=== PATIENT | female | born 1950 | race Caucasian/White ===

== ENCOUNTER 2016-07-10 14:08 | Emergency (ER) | payer MEDICARE, OTHER ==
[~2016-07-10] VITALS: Ht 165.1 cm; Wt 63.5 kg
[2016-07-10] MEDS ORDERED: PANTOPRAZOLE SODIUM 40 MG/10 ML VIAL IV STA (14:37)
[2016-07-10] MEDS ORDERED: SODIUM CHLORIDE 0.9% 500 ML IVB ONE (14:37)
[2016-07-10] MEDS ORDERED: ONDANSETRON HCL 4 MG/2 ML VIAL IV ONE (14:45)
[2016-07-10] MEDS ORDERED: MORPHINE SULFATE 4 MG/ML SYRG IV ONE (14:45)
[2016-07-10 15:07] LABS: Basophils # (auto) 0.1 uL; Basophils % (auto) 0.4 % (0.0-2.0); Eosinophils # (auto) 0 uL; Eosinophils % (auto) 0.3 % (0.0-7.0); Hematocrit 35.6 % (36.0-46.0); Hemoglobin 11.8 g/dL (12.2-16.2); Lymphocytes # (auto) 1.1 uL; Lymphocytes % (auto) 6.4 % (10.0-50.0); Mean Corpuscular Hemoglobin 30.5 pg (28.0-32.0); Mean Corpuscular Hgb Conc. 33.2 g/dL (32.0-36.0); Mean Platelet Volume 9.9 fL (7.4-10.4); Monocytes % (auto) 5.7 % (0.0-12.0); Neutrophils # (auto) 14.5 uL; Neutrophils % (auto) 87.2 % (37.0-80.0); Platelet Count (auto) 327 10^3/uL (140-450); Red Cell Distribution Width 14.6 % (11.6-16.0); SUSPECT VIEW TRANSMISSION; White Blood Cell 16.7 10^3/uL (4.4-10.8)
[2016-07-10 15:45] LABS: Albumin 3.2 g/dL (3.4-5.0); Alkaline Phosphatase 65 U/L (45-117); Anion Gap 10 (5-15); Aspartate Aminotransferase 17 U/L (15-37); BUN/Creatinine Ratio 11.4; Bilirubin, Total 0.6 mg/dL (0.2-1.0); Blood Urea Nitrogen 9 mg/dL (7-18); Calcium 8.4 mg/dL (8.5-10.1); Carbon Dioxide 26 mmol/L (21-32); Chloride 98 mmol/L (98-107); GFR African American 94 mL/min; GFR Non-African American 77 mL/min; Glucose 195 mg/dL (74-106); Magnesium 1.9 mg/dL (1.6-2.6); Potassium 3.7 mmol/L (3.5-5.1); Sodium 134 mmol/L (136-145); Total Protein 6.3 g/dL (6.4-8.2)
[2016-07-10 15:55] LABS: INR 2.9 (0.9-1.15)
[2016-07-10] MEDS ORDERED: GASTROGRAFIN 30 ML SOL ONE (16:35)
[2016-07-10] MEDS ORDERED: IOHEXOL 300 MG/ML 100ML BOTTLE IJ ONE ×2 (16:35→17:37)
[2016-07-10] MEDS ORDERED: SODIUM CHLORIDE 0.9% 500 ML IV ONE (17:30)
[2016-07-10] MEDS ORDERED: NOREPINEPHRINE BITARTRATE 250 ML IV SCH ×2 (17:30→18:30)
[2016-07-10] MEDS ORDERED: SODIUM CHLORIDE 0.9% 1,000 ML IV SCH (18:29)
[2016-07-10] MEDS ORDERED: PHYTONADIONE (VIT K)10 MG/ML 1ML VIAL SUBCUT ONE (18:30)
[2016-07-10] MEDS ORDERED: FAMOTIDINE (10MG/ML) 2ML VL IV ONE (18:30)
[2016-07-10] MEDS ORDERED: SODIUM CHLORIDE 0.9% 3,000 ML IV ONE (18:30)
[2016-07-10] MEDS ORDERED: ONDANSETRON HCL 4 MG/2 ML VIAL IV PRN (18:30)
[2016-07-10] MEDS ORDERED: MORPHINE SULF INJ 2 MG/ML SYRINGE 1ML IV PRN ×2 (18:30)
[2016-07-10] MEDS ORDERED: NITROGLYCERIN 0.4 MG SL TAB SL PRN (18:30)
[2016-07-10] MEDS ORDERED: metroNIDAZOLE 500MG/100ML 100 ML IV ONE (18:45)
[2016-07-10] MEDS ORDERED: DEXTROSE (50%) 50ML SYRG IV PRN (18:45)
[2016-07-10 18:59] VITALS: BP 75/56
[2016-07-10 19:14] VITALS: BP 119/46
[2016-07-10] MEDS ORDERED: cefTRIAXone 1GM/50ML D5W 50 ML IV ONE (20:00)
[2016-07-10 20:31] VITALS: BP 90/66
[2016-07-10 20:42] VITALS: BP 74/46
[2016-07-10 21:53] VITALS: BP 92/54
[2016-07-10] MEDS ORDERED: FAMOTIDINE (10MG/ML) 2ML VL IV SCH (22:00)
[2016-07-10] MEDS ORDERED: PANTOPRAZOLE SODIUM 40 MG/10 ML VIAL IV SCH (22:00)
[2016-07-11] MEDS ORDERED: ACCU-CHEK COMFORT CURVE STRIP VI SCH
[2016-07-11] MEDS ORDERED: InsuLIN REG 1unit/0.01ml Soln (100units/ml) SC SCH
[2016-07-11] MEDS ORDERED: metroNIDAZOLE 500MG/100ML 100 ML IV SCH
[2016-07-11] MEDS ORDERED: cefTRIAXone 1GM/50ML D5W 50 ML IV SCH (09:00)
== END 2016-07-10 21:41 | disposition short-term general hospital (02) ==
LOC: ER 14:12 → UNDOADMIN 14:13 → TELE 14:13 → ER 21:41
DX: K85.90 Acute pancreatitis without necrosis or infection, unspecified (principal); R58 Hemorrhage, not elsewhere classified; K21.9 Gastro-esophageal reflux disease without esophagitis; E78.5 Hyperlipidemia, unspecified; I10 Essential (primary) hypertension; Z90.710 Acquired absence of both cervix and uterus; Z90.49 Acquired absence of other specified parts of digestive tract; I95.9 Hypotension, unspecified
CPT/HCPCS: 36415; 71010; 74176; 74177; 80053; 83036; 83690; 83735; 84484; 85025; 85610; 86850; 86900; 86901; 86920; 93005; 96361; 96365; 96367; 96368; 96372; 96375; 96376; 99291; C9113; J2270; J2405; J3430; J3490; P9016; Q9963; Q9967; 36430

== ENCOUNTER → 2016-07-28 | Outpatient (CLI) | payer MEDICARE, OTHER ==
[2016-07-28 15:52] LABS: INR 2.6 (0.7-1.3); Prothrombin Time 31.7 sec (9.0-12.0)
[2016-07-28 17:45] LABS: Basophils # (auto) 0 uL; Basophils % (auto) 0.4 % (0.0-2.0); CONDITION Y; Eosinophils # (auto) 0.3 uL; Eosinophils % (auto) 3.2 % (0.0-7.0); Hematocrit 38.7 % (36.0-46.0); Hemoglobin 12.7 g/dL (12.2-16.2); Lymphocytes # (auto) 1.1 uL; Lymphocytes % (auto) 10.4 % (10.0-50.0); Mean Corpuscular Hemoglobin 30.9 pg (28.0-32.0); Mean Corpuscular Hgb Conc. 32.8 g/dL (32.0-36.0); Mean Platelet Volume 9.5 fL (7.4-10.4); Monocytes % (auto) 9.4 % (0.0-12.0); Neutrophils % (auto) 76.6 % (37.0-80.0); Platelet Count (auto) 415 10^3/uL (140-450); Red Cell Distribution Width 18.1 % (11.6-16.0); SUSPECT SEE PRINTOUT; White Blood Cell 10.5 10^3/uL (4.4-10.8)
== END | disposition home or self-care (01) ==
LOC: LAB 12:11
PROVIDERS: ATTEND Internal Medicine Cardiovascular Disease
DX: D64.9 Anemia, unspecified (principal); R10.9 Unspecified abdominal pain
CPT/HCPCS: 36415; 85025; 85610

== ENCOUNTER → 2016-08-01 | Outpatient (CLI) | payer MEDICARE, OTHER ==
[2016-08-01 10:57] LABS: INR 2.1 (0.7-1.3); Prothrombin Time 25.5 sec (9.0-12.0)
== END | disposition home or self-care (01) ==
LOC: LAB 10:37
PROVIDERS: ATTEND Internal Medicine Cardiovascular Disease
DX: R79.1 Abnormal coagulation profile (principal)
CPT/HCPCS: 85610

== ENCOUNTER → 2016-08-08 | Outpatient (CLI) | payer MEDICARE, OTHER ==
[2016-08-08 12:05] LABS: Basophils # (auto) 0 uL; Basophils % (auto) 0.6 % (0.0-2.0); CONDITION Y; Eosinophils # (auto) 0.2 uL; Eosinophils % (auto) 2.4 % (0.0-7.0); Hematocrit 42.3 % (36.0-46.0); Hemoglobin 14.6 g/dL (12.2-16.2); Lymphocytes % (auto) 13.4 % (10.0-50.0); Mean Corpuscular Hemoglobin 31.9 pg (28.0-32.0); Mean Corpuscular Hgb Conc. 34.5 g/dL (32.0-36.0); Mean Corpuscular Volume 92.3 fL (80.0-100.0); Mean Platelet Volume 9.5 fL (7.4-10.4); Monocytes # (auto) 0.7 uL; Monocytes % (auto) 8.9 % (0.0-12.0); Neutrophils # (auto) 5.6 uL; Neutrophils % (auto) 74.7 % (37.0-80.0); Platelet Count (auto) 225 10^3/uL (140-450); White Blood Cell 7.5 10^3/uL (4.4-10.8)
[2016-08-08 12:20] LABS: Calcium 8.9 mg/dL (8.5-10.1); Potassium 3.7 mmol/L (3.5-5.1)
[2016-08-08 12:29] LABS: INR 2.09 (0.9-1.15); Partial Thromboplastin Time 37.7 sec (22.64-33.71)
== END | disposition home or self-care (01) ==
LOC: LAB 10:33
PROVIDERS: ATTEND Internal Medicine Cardiovascular Disease
DX: I10 Essential (primary) hypertension (principal); D64.9 Anemia, unspecified; R79.1 Abnormal coagulation profile; Z01.812 Encounter for preprocedural laboratory examination
CPT/HCPCS: 36415; 80048; 82150; 83690; 85025; 85610; 85730

== ENCOUNTER → 2016-12-08 | Outpatient (CLI) | payer MEDICARE, OTHER ==
[2016-12-08 13:04] LABS: Basophils # (auto) 0 uL; Basophils % (auto) 0.5 % (0.0-2.0); Eosinophils # (auto) 0.2 uL; Eosinophils % (auto) 1.9 % (0.0-7.0); Hematocrit 44.4 % (36.0-46.0); Lymphocytes # (auto) 1.4 uL; Lymphocytes % (auto) 18.5 % (10.0-50.0); Mean Corpuscular Hemoglobin 30.8 pg (28.0-32.0); Mean Corpuscular Hgb Conc. 33.8 g/dL (32.0-36.0); Mean Corpuscular Volume 91.2 fL (80.0-100.0); Mean Platelet Volume 8.6 fL (6.9-10.8); Monocytes % (auto) 13.3 % (0.0-12.0); Neutrophils # (auto) 5.1 uL; Neutrophils % (auto) 65.8 % (37.0-80.0); Nucleated Red Blood Cells % 0.2 %; Platelet Count (auto) 259 10^3/uL (140-450); White Blood Cell 7.8 10^3/uL (4.4-10.8)
[2016-12-08 13:14] LABS: Urine Bilirubin Negative (Negative); Urine Blood 1+ /uL (Negative); Urine Color Yellow (Yellow); Urine Glucose Normal (Normal); Urine Ketone Negative (Negative); Urine Nitrite Negative (Negative); Urine Urobilinogen Normal (Negative); Urine pH 6.5 (5.0-8.0)
[2016-12-08 13:42] LABS: Albumin 3.9 g/dL (3.4-5.0); BUN/Creatinine Ratio 9.7; Bilirubin, Direct 0.1 mg/dL (0-0.2); Bilirubin, Total 0.5 mg/dL (0.2-1.0); Calcium 9.6 mg/dL (8.5-10.1); Potassium 4.3 mmol/L (3.5-5.1); Total Protein 8.6 g/dL (6.4-8.2)
== END | disposition home or self-care (01) ==
LOC: LAB 10:22
PROVIDERS: ATTEND Internal Medicine Cardiovascular Disease
DX: I10 Essential (primary) hypertension (principal); E11.9 Type 2 diabetes mellitus without complications; E78.00 Pure hypercholesterolemia, unspecified; E55.9 Vitamin D deficiency, unspecified; K74.1 Hepatic sclerosis; E03.9 Hypothyroidism, unspecified; D64.9 Anemia, unspecified; N39.0 Urinary tract infection, site not specified
CPT/HCPCS: 36415; 80048; 80061; 80076; 81003; 82306; 83036; 84443; 85025; 86803

== ENCOUNTER → 2017-03-17 | Outpatient (CLI) | payer MEDICARE, OTHER | END | disposition home or self-care (01) | LOC: Rad HDHVI 14:19 | PROVIDERS: ATTEND Internal Medicine Cardiovascular Disease | DX: I70.0 Atherosclerosis of aorta (principal); I08.1 Rheumatic disorders of both mitral and tricuspid valves; I10 Essential (primary) hypertension | CPT/HCPCS: 93306 ==

== ENCOUNTER → 2017-09-14 | Outpatient (CLI) | payer MEDICARE, OTHER ==
[2017-09-14 12:03] LABS: Basophils # (auto) 0 uL; Basophils % (auto) 0.7 % (0.0-2.0); Eosinophils # (auto) 0.1 uL; Eosinophils % (auto) 1.6 % (0.0-7.0); Hematocrit 44.3 % (36.0-46.0); Hemoglobin 14.6 g/dL (12.2-16.2); Lymphocytes # (auto) 0.9 uL; Lymphocytes % (auto) 16.9 % (10.0-50.0); Mean Corpuscular Hemoglobin 31.7 pg (28.0-32.0); Mean Corpuscular Hgb Conc. 32.9 g/dL (32.0-36.0); Mean Corpuscular Volume 96.4 fL (80.0-100.0); Monocytes # (auto) 0.7 uL; Monocytes % (auto) 12.9 % (0.0-12.0); Neutrophils # (auto) 3.8 uL; Neutrophils % (auto) 67.9 % (37.0-80.0); Nucleated Red Blood Cells % 0.5 %; Platelet Count (auto) 192 10^3/uL (140-450); Red Cell Distribution Width 13.6 % (11.8-14.3); White Blood Cell 5.6 10^3/uL (4.4-10.8)
[2017-09-14 12:25] LABS: Free T4 (Free Thyroxine) 0.93 ng/dL (0.89-1.76)
[2017-09-14 12:58] LABS: Albumin 3.9 g/dL (3.4-5.0); BUN/Creatinine Ratio 10.6; Bilirubin, Total 0.5 mg/dL (0.2-1.0); Calcium 9.1 mg/dL (8.5-10.1); Potassium 4.4 mmol/L (3.5-5.1); Total Protein 7.5 g/dL (6.4-8.2)
== END | disposition home or self-care (01) ==
LOC: LAB 08:25
PROVIDERS: ATTEND Internal Medicine
DX: Z00.01 Encounter for general adult medical examination with abnormal findings (principal); I10 Essential (primary) hypertension; E11.9 Type 2 diabetes mellitus without complications; E03.9 Hypothyroidism, unspecified; E55.9 Vitamin D deficiency, unspecified; D51.9 Vitamin B12 deficiency anemia, unspecified; E78.00 Pure hypercholesterolemia, unspecified; E78.5 Hyperlipidemia, unspecified
CPT/HCPCS: 36415; 80053; 80061; 82306; 82607; 83036; 84439; 84443; 85025

== ENCOUNTER → 2018-03-15 | Outpatient (CLI) | payer MEDICARE, OTHER | END | disposition home or self-care (01) | LOC: Rad HDHVI 13:52 | PROVIDERS: ATTEND Internal Medicine | DX: I08.1 Rheumatic disorders of both mitral and tricuspid valves (principal); I49.9 Cardiac arrhythmia, unspecified; I10 Essential (primary) hypertension | CPT/HCPCS: 93306 ==

== ENCOUNTER → 2018-06-29 | Outpatient (CLI) | payer MEDICARE, OTHER ==
[2018-06-29 11:31] LABS: Urine Blood Negative /uL (Negative); Urine Specific Gravity 1.009 (1.001-1.035)
[2018-06-29 11:32] LABS: Basophils # (auto) 0.1 uL; Basophils % (auto) 1.1 % (0.0-2.0); Eosinophils # (auto) 0.1 uL; Eosinophils % (auto) 2.2 % (0.0-7.0); Hematocrit 42.9 % (36.0-46.0); Hemoglobin 14.5 g/dL (12.2-16.2); Lymphocytes # (auto) 1.2 uL; Lymphocytes % (auto) 24.5 % (10.0-50.0); Mean Corpuscular Hemoglobin 32.8 pg (28.0-32.0); Mean Corpuscular Hgb Conc. 33.8 g/dL (32.0-36.0); Monocytes # (auto) 0.7 uL; Neutrophils # (auto) 2.7 uL; Neutrophils % (auto) 57.2 % (37.0-80.0); Nucleated Red Blood Cells % 0.5 %; Platelet Count (auto) 166 10^3/uL (140-450); Red Blood Cells 4.42 10^6/uL (4.0-5.20); Red Cell Distribution Width 13.6 % (11.8-14.3); White Blood Cell 4.8 10^3/uL (4.4-10.8)
[2018-06-29 11:53] LABS: Free T4 (Free Thyroxine) 1.04 ng/dL (0.89-1.76)
[2018-06-29 11:57] LABS: Potassium 3.7 mmol/L (3.5-5.1)
[2018-06-29 12:08] LABS: Albumin 3.8 g/dL (3.4-5.0); BUN/Creatinine Ratio 4.8; Bilirubin, Total 0.4 mg/dL (0.2-1.0); Total Protein 7.6 g/dL (6.4-8.2)
== END | disposition home or self-care (01) ==
LOC: LAB 10:06
PROVIDERS: ATTEND Internal Medicine
DX: E03.9 Hypothyroidism, unspecified (principal); E55.9 Vitamin D deficiency, unspecified; D51.9 Vitamin B12 deficiency anemia, unspecified; N39.0 Urinary tract infection, site not specified; Z79.899 Other long term (current) drug therapy
CPT/HCPCS: 36415; 80053; 80061; 81003; 82306; 82607; 83036; 84439; 84443; 85025

== ENCOUNTER → 2018-07-20 | Outpatient (CLI) | payer MEDICARE, OTHER ==
[~2018-07-20] VITALS: Ht 165.1 cm; Wt 63.0 kg
[~2018-07-20] MED LIST: ADENOSINE 53 MG in GIVE UN-DILUTED 0 ML IV ONE; ADENOSINE 90 MG/30 ML INJ IV ONE
== END | disposition home or self-care (01) ==
LOC: Rad HDHVI 08:20
PROVIDERS: ATTEND Internal Medicine
DX: R00.2 Palpitations (principal); I10 Essential (primary) hypertension; K21.9 Gastro-esophageal reflux disease without esophagitis
CPT/HCPCS: 78452; 93005; 96374; 96375; A9500; J0153

== ENCOUNTER 2018-11-10 16:09 | Emergency (ER) | payer MEDICARE, OTHER ==
[~2018-11-10] VITALS: Ht 157.5 cm; Wt 68.0 kg
[2018-11-10 16:33] VITALS: BP 154/78
[2018-11-10 17:41] LABS: Basophils # (auto) 0.1 uL; Basophils % (auto) 0.4 % (0.0-2.0); Eosinophils # (auto) 0.1 uL; Hematocrit 44.2 % (36.0-46.0); Hemoglobin 14.5 g/dL (12.2-16.2); Lymphocytes # (auto) 1.4 uL; Lymphocytes % (auto) 11.3 % (10.0-50.0); Mean Corpuscular Hemoglobin 31.7 pg (28.0-32.0); Mean Corpuscular Hgb Conc. 32.9 g/dL (32.0-36.0); Mean Corpuscular Volume 96.4 fL (80.0-100.0); Monocytes # (auto) 1.4 uL; Monocytes % (auto) 11.9 % (0.0-12.0); Neutrophils # (auto) 9.1 uL; Neutrophils % (auto) 75.4 % (37.0-80.0); Nucleated Red Blood Cells % 0.1 %; Platelet Count (auto) 216 10^3/uL (140-450); Red Blood Cells 4.58 10^6/uL (4.0-5.20); Red Cell Distribution Width 13.7 % (11.8-14.3); White Blood Cell 12.1 10^3/uL (4.4-10.8)
[2018-11-10 17:53] LABS: Alanine Aminotransferase 32 U/L (13-56); Albumin 3.8 g/dL (3.4-5.0); Anion Gap 9 (5-15); Blood Urea Nitrogen 15 mg/dL (7-18); Carbon Dioxide 26 mmol/L (21-32); Chloride 98 mmol/L (98-107); Glucose 146 mg/dL (74-106); Potassium 3.8 mmol/L (3.5-5.1); Sodium 133 mmol/L (136-145)
[2018-11-10 17:58] LABS: Alkaline Phosphatase 73 U/L (45-117); Aspartate Aminotransferase 27 U/L (15-37); BUN/Creatinine Ratio 21.7; Bilirubin, Total 0.7 mg/dL (0.2-1.0); GFR African American 108 mL/min; GFR Non-African American 90 mL/min
== END 2018-11-10 20:22 | disposition left against medical advice (07) ==
LOC: EDBD 16:09 → ER 16:09
DX: R04.0 Epistaxis (principal); R90.82 White matter disease, unspecified; Z53.21 Procedure and treatment not carried out due to patient leaving prior to being seen by health care provider
CPT/HCPCS: 36415; 70450; 80053; 84484; 85025

== ENCOUNTER → 2018-11-13 | Outpatient (CLI) | payer MEDICARE, OTHER ==
[2018-11-13 15:59] LABS: Basophils # (auto) 0 uL; Basophils % (auto) 0.5 % (0.0-2.0); Eosinophils # (auto) 0.1 uL; Eosinophils % (auto) 1.8 % (0.0-7.0); Hematocrit 37.2 % (36.0-46.0); Hemoglobin 12.6 g/dL (12.2-16.2); Lymphocytes % (auto) 14.1 % (10.0-50.0); Mean Corpuscular Hemoglobin 32.8 pg (28.0-32.0); Mean Corpuscular Hgb Conc. 33.9 g/dL (32.0-36.0); Mean Corpuscular Volume 96.7 fL (80.0-100.0); Monocytes % (auto) 14.5 % (0.0-12.0); Neutrophils # (auto) 4.9 uL; Neutrophils % (auto) 69.1 % (37.0-80.0); Platelet Count (auto) 176 10^3/uL (140-450); Red Blood Cells 3.84 10^6/uL (4.0-5.20); Red Cell Distribution Width 13.2 % (11.8-14.3); White Blood Cell 7.2 10^3/uL (4.4-10.8)
[2018-11-13 16:08] LABS: Potassium 3.4 mmol/L (3.5-5.1)
[2018-11-13 16:16] LABS: Albumin 3.7 g/dL (3.4-5.0); BUN/Creatinine Ratio 12.1; Bilirubin, Total 0.5 mg/dL (0.2-1.0); Total Protein 7.2 g/dL (6.4-8.2)
== END | disposition home or self-care (01) ==
LOC: LAB 14:40
PROVIDERS: ATTEND Internal Medicine
DX: D64.9 Anemia, unspecified (principal); I10 Essential (primary) hypertension; R79.9 Abnormal finding of blood chemistry, unspecified; Z98.890 Other specified postprocedural states
CPT/HCPCS: 36415; 80053; 85025; 85610

== ENCOUNTER → 2019-10-29 | Outpatient (CLI) | payer MEDICARE, OTHER ==
[2019-10-29 15:58] LABS: Albumin 3.6 g/dL (3.4-5.0); Calcium 8.8 mg/dL (8.5-10.1); Potassium 3.6 mmol/L (3.5-5.1)
[2019-10-29 16:05] LABS: BUN/Creatinine Ratio 8.7; Bilirubin, Total 0.7 mg/dL (0.2-1.0); Free T4 (Free Thyroxine) 1.02 ng/dL (0.89-1.76); Pre Albumin 30.8 mg/dL (20.0-40.0); Total Protein 7.2 g/dL (6.4-8.2)
[2019-10-29 16:35] LABS: Basophils # (auto) 0.1 10 ^3/uL (0-0.2); Basophils % (auto) 0.7 % (0.0-2.0); Eosinophils # (auto) 0 10 ^3/uL (0-0.8); Eosinophils % (auto) 0.5 % (0.0-7.0); Hematocrit 40.8 % (36.0-46.0); Hemoglobin 14.1 g/dL (12.2-16.2); Lymphocytes # (auto) 1.1 10 ^3/uL (0.4-5.4); Lymphocytes % (auto) 11.4 % (10.0-50.0); Mean Corpuscular Hgb Conc. 34.6 g/dL (32.0-36.0); Mean Corpuscular Volume 95.6 fL (80.0-100.0); Monocytes # (auto) 1.1 10 ^3/uL (0-1.3); Monocytes % (auto) 12.2 % (0.0-12.0); Neutrophils % (auto) 75.2 % (37.0-80.0); Nucleated Red Blood Cells % 0.1 %; Platelet Count (auto) 211 10^3/uL (140-450); Red Blood Cells 4.26 10^6/uL (4.0-5.20); Red Cell Distribution Width 12.7 % (11.8-14.3); White Blood Cell 9.3 10^3/uL (4.4-10.8)
== END | disposition home or self-care (01) ==
LOC: LAB 11:57
PROVIDERS: ATTEND Internal Medicine
DX: D51.3 Other dietary vitamin B12 deficiency anemia (principal); D64.9 Anemia, unspecified; E11.9 Type 2 diabetes mellitus without complications; E55.9 Vitamin D deficiency, unspecified; I10 Essential (primary) hypertension; R00.2 Palpitations; R53.1 Weakness; R30.0 Dysuria; R77.0 Abnormality of albumin
CPT/HCPCS: 36415; 80053; 80061; 82040; 82607; 83036; 84439; 84443; 85025

== ENCOUNTER → 2019-10-31 | Outpatient (CLI) | payer MEDICARE, OTHER | END | disposition home or self-care (01) | LOC: Rad HDHVI 08:08 | PROVIDERS: ATTEND Internal Medicine | DX: I08.1 Rheumatic disorders of both mitral and tricuspid valves (principal); I42.9 Cardiomyopathy, unspecified; I48.91 Unspecified atrial fibrillation; I49.3 Ventricular premature depolarization | CPT/HCPCS: 93306 ==

== ENCOUNTER → 2019-11-01 | Outpatient (CLI) | payer MEDICARE, OTHER ==
[~2019-11-01] MED LIST changes: -ADENOSINE 53 MG in GIVE UN-DILUTED 0 ML IV ONE; -ADENOSINE 90 MG/30 ML INJ IV ONE; +ALBU0.084 NEB; +ALBUAER3 IN; +BIOT50006 PO; +ESOM40CA39 PO; +METO-158 PO; +METO-159 PO; +MULT-927 PO; +OYST500T29 PO; +SACU1TAB PO; +SIMV-13 PO; +WARF2TAB49 PO; +WARF3TAB22 PO; +WARF4TAB33 PO; +WARF5TAB71 PO
[2019-11-01 16:39] LABS: Urine Blood Negative /uL (Negative); Urine Specific Gravity 1.015 (1.001-1.035)
== END | disposition home or self-care (01) ==
LOC: LAB 13:50
PROVIDERS: ATTEND Internal Medicine
DX: N39.0 Urinary tract infection, site not specified (principal); R19.5 Other fecal abnormalities
CPT/HCPCS: 81003; 82270

== ENCOUNTER → 2019-12-04 | Outpatient (CLI) | payer MEDICARE, OTHER ==
[~2019-12-04] MED LIST changes: -ALBU0.084 NEB; -ALBUAER3 IN; -WARF2TAB49 PO
[2019-12-04 10:09] VITALS: BP 110/55
--- NOTE | 2019-12-04 10:09 | NUR ---
CLINIC PT ARRIVED TO THE [facility] FOR EKG, LABS, CXR FOR PRE OP FOR [facility], A/OX4, AMBULATORY, BREATHING IS EVEN AND UNLABORED
--- NOTE | 2019-12-04 10:14 | NUR ---
EKG DONE BY MARIO MCINTYRE REVIEWED BY OSEAS MASSEY SR 61 TRIGEMINY PVC
[2019-12-04 10:27] VITALS: BP 122/55
--- NOTE | 2019-12-04 10:27 | NUR ---
Pre-Op Discharge Summary: See e-MAR for any medications given for this visit. Pre-op orders received and carried out per MD of EKG, LABS and chest xrays. Patient given a copy of EKG with instructions to go to [facility] out patient for further follow up care. NOTE EKG DONE BY MARIO MCINTYRE REVIEWED BY OSEAS MASSEY
[2019-12-04 12:23] LABS: Basophils # (auto) 0.1 10 ^3/uL (0-0.2); Basophils % (auto) 0.6 % (0.0-2.0); Eosinophils # (auto) 0.1 10 ^3/uL (0-0.8); Eosinophils % (auto) 0.8 % (0.0-7.0); Hematocrit 40.4 % (36.0-46.0); Hemoglobin 13.9 g/dL (12.2-16.2); Lymphocytes # (auto) 1.2 10 ^3/uL (0.4-5.4); Mean Corpuscular Hemoglobin 32.9 pg (28.0-32.0); Mean Corpuscular Hgb Conc. 34.3 g/dL (32.0-36.0); Mean Corpuscular Volume 95.9 fL (80.0-100.0); Monocytes # (auto) 1.3 10 ^3/uL (0-1.3); Monocytes % (auto) 11.3 % (0.0-12.0); Neutrophils # (auto) 8.5 10 ^3/uL (1.6-8.6); Neutrophils % (auto) 76.3 % (37.0-80.0); Nucleated Red Blood Cells % 0.1 %; Platelet Count (auto) 229 10^3/uL (140-450); Red Blood Cells 4.21 10^6/uL (4.0-5.20); White Blood Cell 11.2 10^3/uL (4.4-10.8)
[2019-12-04 12:27] LABS: Potassium 3.6 mmol/L (3.5-5.1)
[2019-12-04 12:29] LABS: INR 2.78 (0.9-1.15); Partial Thromboplastin Time 39.5 sec (23.0-31.2)
[2019-12-04 12:30] LABS: BUN/Creatinine Ratio 9.8; Calcium 8.6 mg/dL (8.5-10.1)
== END | disposition home or self-care (01) ==
LOC: Rad HDHVI 09:48
PROVIDERS: ATTEND Internal Medicine
DX: Z01.812 Encounter for preprocedural laboratory examination (principal); Z01.818 Encounter for other preprocedural examination; I70.0 Atherosclerosis of aorta; I11.0 Hypertensive heart disease with heart failure; I48.91 Unspecified atrial fibrillation; R06.02 Shortness of breath; I42.9 Cardiomyopathy, unspecified
CPT/HCPCS: 36415; 71046; 80048; 85025; 85610; 85730; 93005; G0463

== ENCOUNTER 2019-12-11 06:57 | Day surgery (SDC) | payer MEDICARE, OTHER ==
[~2019-12-11] VITALS: Ht 162.6 cm; Wt 55.3 kg
[2019-12-11 08:50] LABS: INR 1.59 (0.9-1.15)
[2019-12-11] MEDS ORDERED: GELATIN 1 SPONGE SIZE 50 TOP ONE (09:24)
[2019-12-11] MEDS ORDERED: LIDOCAINE 2%HCL (LOCAL ANESTH.) INJ 20ML MDV ONE (09:24)
[2019-12-11] MEDS ORDERED: SODIUM CHL 0.9% 0 ML ONE (09:54)
[2019-12-11] MEDS ORDERED: fentaNYL CITRATE 100 MCG/2 ML VL ONE (09:54)
[2019-12-11] MEDS ORDERED: ANGIOMAX 250 MG VIAL IV ONE (09:54)
[2019-12-11] MEDS ORDERED: MIDAZOLAM HCL 1MG/1ML-2 ML VIAL ONE (09:54)
[2019-12-11] MEDS ORDERED: ACETAMINOPHEN 500 MG TAB PO PRN (11:15)
[2019-12-11] MEDS ORDERED: HYDROcodone-ACET 5/325MG TAB PO PRN (11:15)
[2019-12-11] MEDS ORDERED: ONDANSETRON HCL 4 MG/2 ML VIAL IV PRN (11:15)
== END 2019-12-11 15:04 | disposition home or self-care (01) ==
LOC: CATH 06:57
PROVIDERS: ATTEND Internal Medicine
DX: R06.02 Shortness of breath (principal); I10 Essential (primary) hypertension; E78.5 Hyperlipidemia, unspecified; Z87.891 Personal history of nicotine dependence; Z79.899 Other long term (current) drug therapy; Z20.828 Contact with and (suspected) exposure to other viral communicable diseases; Z98.890 Other specified postprocedural states
CPT/HCPCS: 36415; 85610; 93456; C1751; C1760; C1894; J1644; J2250; J3010; J7030; U0003; 99152

== ENCOUNTER 2019-12-16 08:23 | Inpatient (IN) | payer MEDICARE, OTHER ==
[~2019-12-16] VITALS: Ht 162.6 cm; Wt 57.3 kg
[2019-12-16 09:15] LABS: Basophils # (auto) 0 10 ^3/uL (0-0.2); Basophils % (auto) 0.4 % (0.0-2.0); Eosinophils # (auto) 0.1 10 ^3/uL (0-0.8); Eosinophils % (auto) 1.2 % (0.0-7.0); Hematocrit 32.8 % (36.0-46.0); Hemoglobin 10.9 g/dL (12.2-16.2); Lymphocytes % (auto) 15.8 % (10.0-50.0); Mean Corpuscular Hemoglobin 32.3 pg (28.0-32.0); Mean Corpuscular Hgb Conc. 33.3 g/dL (32.0-36.0); Monocytes # (auto) 0.8 10 ^3/uL (0-1.3); Monocytes % (auto) 12.3 % (0.0-12.0); Neutrophils # (auto) 4.5 10 ^3/uL (1.6-8.6); Neutrophils % (auto) 70.3 % (37.0-80.0); Nucleated Red Blood Cells % 0.4 %; Platelet Count (auto) 230 10^3/uL (140-450); Red Blood Cells 3.38 10^6/uL (4.0-5.20); Red Cell Distribution Width 13.1 % (11.8-14.3); White Blood Cell 6.4 10^3/uL (4.4-10.8)
[2019-12-16 09:31] LABS: INR 1.01 (0.9-1.15); Partial Thromboplastin Time 25.6 sec (23.0-31.2)
[2019-12-16 09:32] LABS: Albumin 3.4 g/dL (3.4-5.0); BUN/Creatinine Ratio 6.5; Calcium 8.3 mg/dL (8.5-10.1); Potassium 3.5 mmol/L (3.5-5.1)
[2019-12-16 09:35] LABS: Bilirubin, Total 0.8 mg/dL (0.2-1.0)
[2019-12-16] MEDS ORDERED: MORPHINE SULF INJ 2 MG/ML SYRINGE 1ML IV PRN ×2 (10:30)
[2019-12-16] MEDS ORDERED: NITROGLYCERIN 0.4 MG SL TAB SL PRN (10:30)
[2019-12-16] MEDS ORDERED: HYDROcodone-ACET 5/325MG TAB PO PRN (10:30)
[2019-12-16] MEDS ORDERED: DOCUSATE SOD 100 MG CAP PO PRN (10:30)
[2019-12-16] MEDS ORDERED: ONDANSETRON HCL 4 MG/2 ML VIAL IV PRN (10:30)
[2019-12-16] MEDS: SODIUM CHLORIDE 0.9% 1,000 ML IV SCH (10:51)
[2019-12-16] MEDS ORDERED: WARF2TAB49 PO (11:54)
[2019-12-16] MEDS ORDERED: ALBU0.084 NEB (11:56)
[2019-12-16] MEDS ORDERED: ALBUAER3 IN (11:56)
[2019-12-16] MEDS: ACETAMINOPHEN 500 MG TAB PO PRN (12:15)
--- NOTE | 2019-12-16 15:02 | NUR ---
Report Received report from ER. Denise
--- NOTE | 2019-12-16 15:30 | NUR ---
Patient Arrived Patient arrived to unit. Patient arrived to unit from ER. No signs of distress at this time. Respirations even and unlabored. Will continue to monitor q1hr and PRN.
[2019-12-16 16:56] VITALS: BP 103/56
[2019-12-16] MEDS ORDERED: MULTIPLE VITAMINS W/ MINERALS TAB PO SCH (18:00)
--- NOTE | 2019-12-16 18:15 | NUR ---
Picture Obtained pictures of right lower extremity ecchymosis.
--- NOTE | 2019-12-16 19:25 | NUR ---
Closing Shift Note Endorsed patient care to [facility] RNThomas. Patient currently laying in bed, no signs of distress at this time. Respirations even and unlabored.
--- NOTE | 2019-12-16 19:25 | NUR ---
MRSA MRSA swab obtained and sent to lab.
[2019-12-16] MEDS: SACUBITRIL-VALSARTAN 24mg/26mg TAB PO SCH (21:56)
[2019-12-16 22:00] VITALS: BP 129/82
[2019-12-16] MEDS ORDERED: ATORVASTATIN 20 MG PO SCH (22:00)
[2019-12-16] MEDS ORDERED: METOPROLOL TARTRATE 50 MG TAB PO SCH (22:00)
[2019-12-16] MEDS ORDERED: TEMAZEPAM 15 MG CAP PO ONE (22:45)
[2019-12-16 23:19] LABS: Urine Amorphous Crystal FEW /hpf (None Seen); Urine Bacteria FEW /hpf (None Seen); Urine Blood Negative /uL (Negative); Urine Mucus FEW (None Seen); Urine Specific Gravity 1.013 (1.001-1.035); Urine WBC 215 /hpf (0 - 5)
[2019-12-17] MEDS: SODIUM CHLORIDE 0.9% 1,000 ML IV SCH (00:05)
[2019-12-17 05:00] VITALS: BP 120/60
[2019-12-17 07:10] LABS: Basophils # (auto) 0 10 ^3/uL (0-0.2); Basophils % (auto) 0.8 % (0.0-2.0); Eosinophils # (auto) 0.1 10 ^3/uL (0-0.8); Eosinophils % (auto) 1.7 % (0.0-7.0); Hematocrit 27.7 % (36.0-46.0); Hemoglobin 9.5 g/dL (12.2-16.2); Lymphocytes # (auto) 1.1 10 ^3/uL (0.4-5.4); Lymphocytes % (auto) 20.3 % (10.0-50.0); Mean Corpuscular Hemoglobin 33.5 pg (28.0-32.0); Mean Corpuscular Hgb Conc. 34.4 g/dL (32.0-36.0); Mean Corpuscular Volume 97.5 fL (80.0-100.0); Monocytes # (auto) 0.8 10 ^3/uL (0-1.3); Monocytes % (auto) 14.4 % (0.0-12.0); Neutrophils # (auto) 3.5 10 ^3/uL (1.6-8.6); Neutrophils % (auto) 62.8 % (37.0-80.0); Nucleated Red Blood Cells % 0.2 %; Platelet Count (auto) 188 10^3/uL (140-450); Red Blood Cells 2.84 10^6/uL (4.0-5.20); Red Cell Distribution Width 13.2 % (11.8-14.3); White Blood Cell 5.6 10^3/uL (4.4-10.8)
[2019-12-17 07:31] LABS: Potassium 3.8 mmol/L (3.5-5.1)
[2019-12-17 07:34] LABS: BUN/Creatinine Ratio 9.3; Calcium 8.5 mg/dL (8.5-10.1)
[2019-12-17 08:20] VITALS: BP 134/57
--- NOTE | 2019-12-17 08:20 | NUR ---
Patient resting quietly in bed with no complaint of any pain at this time. Patient stable.
[2019-12-17 08:24] VITALS: BP 134/57
[2019-12-17] MEDS: SACUBITRIL-VALSARTAN 24mg/26mg TAB PO SCH (09:25)
--- NOTE | 2019-12-17 09:25 | NUR ---
Scheduled medication given per order. Patient resting comfortably in bed with no distress noted. Patient stable.
[2019-12-17] MEDS ORDERED: FAMOTIDINE 20 MG TAB PO SCH (10:00)
--- NOTE | 2019-12-17 11:15 | NUR ---
Patient asleep with no distress noted. Patient stable.
--- NOTE | 2019-12-17 11:25 | NUR ---
Patient resting quietly in bed with Dr. Menchaca at bedside. Patient medicated for 3/10 headache pain. Patient stable at this time.
[2019-12-17] MEDS: ACETAMINOPHEN 500 MG TAB PO PRN (11:28)
[2019-12-17] MEDS ORDERED: cefTRIAXone 1GM/50ML D5W 50 ML IV ONE (11:30)
[2019-12-17 12:14] VITALS: BP 123/63
[2019-12-17] MEDS ORDERED: fentaNYL CITRATE 100 MCG/2 ML VL ONE (13:10)
[2019-12-17] MEDS ORDERED: MIDAZOLAM HCL 1MG/1ML-2 ML VIAL ONE (13:10)
--- NOTE | 2019-12-17 14:20 | NUR ---
Patient resting comfortably in bed with no distress noted; denies any pain. Patient stable.
[2019-12-17 15:00] VITALS: BP_SYST 123; BP_SYST 134; BP_DIAS 63; BP_DIAS 75
--- NOTE | 2019-12-17 15:42 | NUR ---
Ordered IV abx given. Patient resting comfortably in bed with no complaint of pain. Patient stable.
--- NOTE | 2019-12-17 17:25 | NUR ---
Discharge instructions / discharge Both written and verbal discharge instructions given to patient as ordered. Encourage to follow up with PMD as instructed. Also advised to follow up with Dr. Long this week. Patient states she has an appointment on , 12-19-19. All questions and concerns addressed. Patient verbalized understanding. Medication reconciliation form completed and copy given to patient. Peripheral IV removed with intact with no active bleeding; pressure dressing applied. Telemetry unit returned to ICU. Patient discharged to home in stable condition. Patient taken to vehicle via wheelchair with all personal belongings, accompanied by staff member. No distress noted at time of departure.
[2019-12-18] MEDS ORDERED: cefTRIAXone 1GM/50ML D5W 50 ML IV SCH (09:00)
== END 2019-12-17 17:25 | disposition home or self-care (01) | DRG 920 ==
LOC: ER 08:23 → TELE 08:24 → TELE-CENTR 15:37
PROVIDERS: ADMIT Nurse Practitioner Acute Care; ATTEND Internal Medicine
DX: L76.32 Postprocedural hematoma of skin and subcutaneous tissue following other procedure (principal); I50.22 Chronic systolic (congestive) heart failure; I48.0 Paroxysmal atrial fibrillation; K21.9 Gastro-esophageal reflux disease without esophagitis; J45.909 Unspecified asthma, uncomplicated; D64.9 Anemia, unspecified; I11.0 Hypertensive heart disease with heart failure; E78.5 Hyperlipidemia, unspecified; Z90.710 Acquired absence of both cervix and uterus; Z95.2 Presence of prosthetic heart valve; S80.11XA Contusion of right lower leg, initial encounter; Z90.49 Acquired absence of other specified parts of digestive tract
CPT/HCPCS: 36415; 80048; 80053; 81001; 85025; 85610; 85730; 87081; 93005; 93926; 96360; G0378; J0696; J2250

== ENCOUNTER → 2019-12-19 | Outpatient (CLI) | payer MEDICARE, OTHER ==
[~2019-12-19] MED LIST changes: +ALBU0.084 NEB; +ALBUAER3 IN; +WARF2TAB49 PO; -WARF3TAB22 PO; -WARF4TAB33 PO; -WARF5TAB71 PO
[2019-12-19 15:57] LABS: Basophils # (auto) 0 10 ^3/uL (0-0.2); Basophils % (auto) 0.4 % (0.0-2.0); Eosinophils # (auto) 0.1 10 ^3/uL (0-0.8); Hematocrit 31.8 % (36.0-46.0); Hemoglobin 10.8 g/dL (12.2-16.2); Lymphocytes # (auto) 1.4 10 ^3/uL (0.4-5.4); Lymphocytes % (auto) 12.7 % (10.0-50.0); Mean Corpuscular Hemoglobin 33.6 pg (28.0-32.0); Mean Corpuscular Hgb Conc. 33.8 g/dL (32.0-36.0); Mean Corpuscular Volume 99.4 fL (80.0-100.0); Monocytes # (auto) 1.3 10 ^3/uL (0-1.3); Monocytes % (auto) 11.6 % (0.0-12.0); Neutrophils # (auto) 8.1 10 ^3/uL (1.6-8.6); Neutrophils % (auto) 74.3 % (37.0-80.0); Nucleated Red Blood Cells % 0.1 %; Platelet Count (auto) 266 10^3/uL (140-450); Red Cell Distribution Width 13.8 % (11.8-14.3); White Blood Cell 10.9 10^3/uL (4.4-10.8)
== END | disposition home or self-care (01) ==
LOC: LAB 11:17
PROVIDERS: ATTEND Internal Medicine
DX: N39.0 Urinary tract infection, site not specified (principal); D64.9 Anemia, unspecified
CPT/HCPCS: 36415; 85025; 87086

== ENCOUNTER → 2020-08-27 | Outpatient (CLI) | payer MEDICARE, OTHER ==
[2020-08-27 15:12] LABS: Basophils # (auto) 0.1 10 ^3/uL (0-0.2); Basophils % (auto) 0.8 % (0.0-2.0); Eosinophils # (auto) 0.1 10 ^3/uL (0-0.8); Eosinophils % (auto) 1.4 % (0.0-7.0); Hematocrit 34.5 % (36.0-46.0); Hemoglobin 11.9 g/dL (12.2-16.2); Lymphocytes # (auto) 1.5 10 ^3/uL (0.4-5.4); Lymphocytes % (auto) 16.5 % (10.0-50.0); Mean Corpuscular Hgb Conc. 34.5 g/dL (32.0-36.0); Mean Corpuscular Volume 92.8 fL (80.0-100.0); Monocytes % (auto) 11.1 % (0.0-12.0); Neutrophils # (auto) 6.3 10 ^3/uL (1.6-8.6); Neutrophils % (auto) 70.2 % (37.0-80.0); Nucleated Red Blood Cells % 0.1 %; Red Blood Cells 3.72 10^6/uL (4.0-5.20); Red Cell Distribution Width 12.4 % (11.8-14.3)
[2020-08-27 15:17] LABS: Albumin 4.2 g/dL (3.4-5.0); Calcium 8.3 mg/dL (8.5-10.1)
[2020-08-27 15:22] LABS: Bilirubin, Total 0.5 mg/dL (0.2-1.0); CRP High Sensitivity 0.08 mg/dL (< 0.3)
[2020-08-27 15:23] LABS: BUN/Creatinine Ratio 13.3; Potassium 2.8 mmol/L (3.5-5.1)
== END | disposition home or self-care (01) ==
LOC: Rad HDHVI 12:38
PROVIDERS: ATTEND Internal Medicine
DX: R06.02 Shortness of breath (principal); I70.0 Atherosclerosis of aorta; R79.82 Elevated C-reactive protein (CRP); I10 Essential (primary) hypertension; D64.9 Anemia, unspecified
CPT/HCPCS: 36415; 71046; 80053; 85025; 86141

== ENCOUNTER → 2020-08-28 | Outpatient (CLI) | payer MEDICARE, OTHER | END | disposition home or self-care (01) | LOC: LAB 10:31 | PROVIDERS: ATTEND Internal Medicine Cardiovascular Disease | DX: R94.4 Abnormal results of kidney function studies (principal) | CPT/HCPCS: 36415; 82565 ==

== ENCOUNTER → 2020-08-31 | Outpatient (CLI) | payer MEDICARE, OTHER ==
[~2020-08-31] MED LIST changes: +IOHEXOL 350 MG/ML 100ML IJ ONE
[2020-08-31 10:29] VITALS: BP 128/52
[2020-08-31 10:56] VITALS: BP 131/44
== END | disposition home or self-care (01) ==
LOC: Rad HDHVI 10:21
PROVIDERS: ATTEND Internal Medicine
DX: G93.89 Other specified disorders of brain (principal); J34.89 Other specified disorders of nose and nasal sinuses; J32.9 Chronic sinusitis, unspecified; R51.9 Headache, unspecified
CPT/HCPCS: 70470; G0463; Q9967

== ENCOUNTER → 2020-09-10 | Outpatient (CLI) | payer MEDICARE, OTHER ==
[~2020-09-10] MED LIST changes: -IOHEXOL 350 MG/ML 100ML IJ ONE
[2020-09-10 11:33] LABS: Albumin 3.8 g/dL (3.4-5.0); Calcium 8.7 mg/dL (8.5-10.1); Potassium 3.3 mmol/L (3.5-5.1)
[2020-09-10 11:38] LABS: BUN/Creatinine Ratio 16.1; Bilirubin, Total 0.5 mg/dL (0.2-1.0); Total Protein 7.3 g/dL (6.4-8.2)
== END | disposition home or self-care (01) ==
LOC: LAB 10:41
PROVIDERS: ATTEND Internal Medicine
DX: I10 Essential (primary) hypertension (principal)
CPT/HCPCS: 36415; 80053

== ENCOUNTER → 2021-02-09 | Outpatient (CLI) | payer MEDICARE, OTHER | END | disposition home or self-care (01) | LOC: Rad HDHVI 10:35 | PROVIDERS: ATTEND Internal Medicine | DX: M19.032 Primary osteoarthritis, left wrist (principal); M85.88 Other specified disorders of bone density and structure, other site; M25.832 Other specified joint disorders, left wrist | CPT/HCPCS: 73110 ==

== ENCOUNTER → 2021-11-24 | Outpatient (CLI) | payer MEDICARE, OTHER ==
[2021-11-24 12:58] LABS: Potassium 3.4 mmol/L (3.5-5.1)
[2021-11-24 12:59] LABS: Basophils # (auto) 0.1 10 ^3/uL (0-0.2); Basophils % (auto) 0.8 % (0.0-2.0); Eosinophils # (auto) 0.1 10 ^3/uL (0-0.8); Eosinophils % (auto) 0.7 % (0.0-7.0); Hematocrit 36.9 % (36.0-46.0); Hemoglobin 12.6 g/dL (12.2-16.2); Lymphocytes # (auto) 1.3 10 ^3/uL (0.4-5.4); Lymphocytes % (auto) 13.9 % (10.0-50.0); Mean Corpuscular Hemoglobin 31.4 pg (28.0-32.0); Mean Corpuscular Hgb Conc. 34.1 g/dL (32.0-36.0); Mean Corpuscular Volume 92.1 fL (80.0-100.0); Monocytes # (auto) 1.2 10 ^3/uL (0-1.3); Monocytes % (auto) 13.2 % (0.0-12.0); Neutrophils # (auto) 6.7 10 ^3/uL (1.6-8.6); Neutrophils % (auto) 71.4 % (37.0-80.0); Nucleated Red Blood Cells % 0.1 %; Red Blood Cells 4.01 10^6/uL (4.0-5.20); Red Cell Distribution Width 12.9 % (11.8-14.3); White Blood Cell 9.4 10^3/uL (4.4-10.8)
[2021-11-24 13:03] LABS: Free T4 (Free Thyroxine) 1.64 ng/dL (0.89-1.76)
[2021-11-24 13:07] LABS: Albumin 3.8 g/dL (3.4-5.0); BUN/Creatinine Ratio 12.7; Bilirubin, Total 0.6 mg/dL (0.2-1.0); Calcium 9.2 mg/dL (8.5-10.1); Total Protein 7.5 g/dL (6.4-8.2)
== END | disposition home or self-care (01) ==
LOC: LAB 09:04
PROVIDERS: ATTEND Internal Medicine
DX: I10 Essential (primary) hypertension (principal); E55.9 Vitamin D deficiency, unspecified; D51.3 Other dietary vitamin B12 deficiency anemia; D64.9 Anemia, unspecified; E11.9 Type 2 diabetes mellitus without complications; R00.2 Palpitations; R53.1 Weakness; R30.0 Dysuria
CPT/HCPCS: 36415; 80053; 80061; 82306; 82607; 83036; 84439; 84443; 85025

== ENCOUNTER → 2021-11-26 | Outpatient (CLI) | payer MEDICARE, OTHER | END | disposition home or self-care (01) | LOC: Rad HDHVI 09:28 | PROVIDERS: ATTEND Internal Medicine | DX: I08.8 Other rheumatic multiple valve diseases (principal); I11.9 Hypertensive heart disease without heart failure; Z95.2 Presence of prosthetic heart valve | CPT/HCPCS: 93306 ==

== ENCOUNTER → 2021-11-30 | Outpatient (CLI) | payer MEDICARE, OTHER ==
[~2021-11-30] VITALS: Ht 160 cm; Wt 49.9 kg
[~2021-11-30] MED LIST changes: +ADENOSINE 42 MG in GIVE UN-DILUTED 0 ML IV ONE; +ADENOSINE 90 MG/30 ML INJ IV ONE
[2021-11-30 12:15] LABS: Urine Blood Negative /uL (Negative); Urine Specific Gravity 1.011 (1.001-1.035)
== END | disposition home or self-care (01) ==
LOC: Rad HDHVI 09:08
PROVIDERS: ATTEND Internal Medicine
DX: I10 Essential (primary) hypertension (principal); E78.5 Hyperlipidemia, unspecified; N39.0 Urinary tract infection, site not specified; I95.89 Other hypotension; R42 Dizziness and giddiness; Z82.49 Family history of ischemic heart disease and other diseases of the circulatory system; Z79.899 Other long term (current) drug therapy; Z95.2 Presence of prosthetic heart valve
CPT/HCPCS: 78452; 81003; 87086; 93005; 96374; 96375; A9500; J0153

== ENCOUNTER → 2022-06-06 | Outpatient (CLI) | payer MEDICARE, OTHER ==
[~2022-06-06] MED LIST changes: -ADENOSINE 42 MG in GIVE UN-DILUTED 0 ML IV ONE; -ADENOSINE 90 MG/30 ML INJ IV ONE
== END | disposition home or self-care (01) ==
LOC: Rad HDHVI 12:58
PROVIDERS: ATTEND Internal Medicine Cardiovascular Disease
DX: I08.0 Rheumatic disorders of both mitral and aortic valves (principal); I10 Essential (primary) hypertension; E78.5 Hyperlipidemia, unspecified
CPT/HCPCS: 93306

== ENCOUNTER → 2022-06-15 | Outpatient (CLI) | payer MEDICARE, OTHER ==
[~2022-06-15] VITALS: Ht 162.6 cm; Wt 45.4 kg
[~2022-06-15] MED LIST changes: +ADENOSINE 38 MG in GIVE UN-DILUTED 0 ML IV ONE; +ADENOSINE 90 MG/30 ML INJ IV ONE
== END | disposition home or self-care (01) ==
LOC: Rad HDHVI 08:10
PROVIDERS: ATTEND Internal Medicine Cardiovascular Disease
DX: I25.10 Atherosclerotic heart disease of native coronary artery without angina pectoris (principal); I42.8 Other cardiomyopathies; I10 Essential (primary) hypertension; E78.5 Hyperlipidemia, unspecified; Z95.2 Presence of prosthetic heart valve; Z82.49 Family history of ischemic heart disease and other diseases of the circulatory system
CPT/HCPCS: 78452; 93005; 96374; 96375; A9500; J0153

== ENCOUNTER 2023-04-22 08:58 | Inpatient (IN) | payer MEDICARE, OTHER ==
[~2023-04-22] VITALS: Ht 162.6 cm; Wt 49.0 kg
[~2023-04-22 08:58] MED LIST changes: -ADENOSINE 38 MG in GIVE UN-DILUTED 0 ML IV ONE; -ADENOSINE 90 MG/30 ML INJ IV ONE; -SIMV-13 PO; +SIMV40TA18 PO; -WARF2TAB49 PO; +WARF4TAB69 PO
[2023-04-22 09:35] VITALS: PULSE 59; RESP 12; O2SAT 97
[2023-04-22 09:42] LABS: Basophils # (auto) 0.1 10 ^3/uL (0-0.2); Basophils % (auto) 0.5 % (0.0-2.0); Eosinophils # (auto) 0.1 10 ^3/uL (0-0.8); Eosinophils % (auto) 0.7 % (0.0-7.0); Hematocrit 40.6 % (36.0-46.0); Hemoglobin 13.8 g/dL (12.2-16.2); Lymphocytes # (auto) 1.4 10 ^3/uL (0.4-5.4); Lymphocytes % (auto) 12.3 % (10.0-50.0); Mean Corpuscular Hemoglobin 30.7 pg (28.0-32.0); Mean Corpuscular Volume 90.3 fL (80.0-100.0); Monocytes # (auto) 1.4 10 ^3/uL (0-1.3); Monocytes % (auto) 11.6 % (0.0-12.0); Neutrophils # (auto) 8.8 10 ^3/uL (1.6-8.6); Neutrophils % (auto) 74.9 % (37.0-80.0); Red Cell Distribution Width 13.4 % (11.8-14.3); White Blood Cell 11.8 10^3/uL (4.4-10.8)
[2023-04-22 09:49] LABS: Chloride 88 mmol/L (98-107); Sodium 124 mmol/L (136-145)
[2023-04-22 09:50] LABS: Anion Gap 5 (5-15); Carbon Dioxide 31 mmol/L (20-30)
[2023-04-22 09:51] LABS: Calcium 9.4 mg/dL (8.5-10.1)
[2023-04-22 09:56] LABS: BUN/Creatinine Ratio 19.8 (10.0-20.0); Blood Urea Nitrogen 18 mg/dL (9-23); Glucose 105 mg/dL (74-106)
[2023-04-22 10:14] LABS: INR 1.41 (0.9-1.15); Partial Thromboplastin Time 32.3 SEC (24.5-34.5); Prothrombin Time 14.5 sec (9.3-11.8)
[2023-04-22] MEDS: SODIUM CHLORIDE 0.9% 1,000 ML IV ONE (10:27)
[2023-04-22] MEDS: SODIUM CHLORIDE 0.9% 1,000 ML IV SCH (13:45)
[2023-04-22] MEDS: POTASSIUM EFFERVESENT TAB 25 MEQ PO ONE (15:13)
[2023-04-22 15:45] LABS: Magnesium 1.1 mg/dL (1.6-2.6)
[2023-04-22 15:47] LABS: Phosphorus 2.8 mg/dL (2.4-5.1)
[2023-04-22 17:35] LABS: Urine Bacteria NONE SEEN /hpf (None Seen); Urine Blood Negative /uL (Negative); Urine Clarity Clear (Clear); Urine Color Colorless (Yellow); Urine Protein, UAD Negative (Negative); Urine Specific Gravity 1.012 (1.001-1.035); Urine Urobilinogen Normal (Negative); Urine WBC 3 /hpf (0 - 5)
[2023-04-22 17:36] LABS: Creatinine, Urine 57.53 mg/dL (30.0-125.0)
[2023-04-22] MEDS ORDERED: LIDOCAINE 1% HCL (LOCAL ANESTH.) INJ 20ML MDV ID ONE (17:45)
[2023-04-22] MEDS: LIDOCAINE 1% HCL (LOCAL ANESTH.) INJ 20ML MDV ID ONE (17:59)
[2023-04-22] MEDS: ONDANSETRON HCL 4 MG/2 ML VIAL IV PRN (20:19)
[2023-04-22] MEDS: MORPHINE SULFATE INJ 2 MG/ml SYRG IV PRN (20:20)
[2023-04-22 21:09] VITALS: PULSE 72; RESP 21; O2SAT 95
[2023-04-22] MEDS: METOPROLOL TARTRATE 50 MG TAB PO SCH (22:00)
[2023-04-22] MEDS: ATORVASTATIN 20 MG TAB PO SCH (22:13)
[2023-04-22 22:45] VITALS: BP 136/49; PULSE 61; RESP 18; TEMP 97.5; O2SAT 98
[2023-04-22] MEDS ORDERED: PREG50CA PO (23:27)
[2023-04-22] MEDS ORDERED: TEMA30CA PO (23:27)
[2023-04-23] VITALS (8 sets, daily range): BP systolic 120–168; BP diastolic 45–64; PULSE 57–77; RESP 16–20; TEMP 97.3–98.3; O2SAT 92–98
[2023-04-23 06:15] LABS: Basophils # (auto) 0 10 ^3/uL (0-0.2); Basophils % (auto) 0.6 % (0.0-2.0); Eosinophils # (auto) 0.1 10 ^3/uL (0-0.8); Hematocrit 34.5 % (36.0-46.0); Hemoglobin 11.7 g/dL (12.2-16.2); Lymphocytes # (auto) 1.5 10 ^3/uL (0.4-5.4); Lymphocytes % (auto) 19.7 % (10.0-50.0); Mean Corpuscular Hemoglobin 31.2 pg (28.0-32.0); Mean Corpuscular Hgb Conc. 33.9 g/dL (32.0-36.0); Monocytes # (auto) 0.9 10 ^3/uL (0-1.3); Monocytes % (auto) 11.6 % (0.0-12.0); Neutrophils % (auto) 67.1 % (37.0-80.0); Red Blood Cells 3.75 10^6/uL (4.0-5.20); Red Cell Distribution Width 13.2 % (11.8-14.3); White Blood Cell 7.4 10^3/uL (4.4-10.8)
[2023-04-23 07:14] LABS: Albumin 3.5 g/dL (3.2-4.8); Alkaline Phosphatase 39 U/L (46-116); Anion Gap 4 (5-15); Aspartate Aminotransferase 21 U/L (13-40); BUN/Creatinine Ratio 12.2 (10.0-20.0); Blood Urea Nitrogen 9 mg/dL (9-23); Calcium 8.7 mg/dL (8.5-10.1); Carbon Dioxide 30 mmol/L (20-30); Chloride 97 mmol/L (98-107); Glucose 90 mg/dL (74-106); Potassium 3.3 mmol/L (3.5-5.1)
[2023-04-23 07:15] LABS: Bilirubin, Total 1.4 mg/dL (0.2-1.0); Total Protein 5.5 g/dL (5.7-8.2)
[2023-04-23 07:24] LABS: Alanine Aminotransferase < 9 U/L (7-40); Sodium 131 mmol/L (136-145)
[2023-04-23] MEDS: PANTOPRAZOLE 40 MG TAB PO SCH (10:00)
[2023-04-23] MEDS: NEOMYCIN-BACITRACIN-POLYM UNITDOSE PKG TOP OINT TOP SCH (13:47)
[2023-04-23] MEDS: POTASSIUM CHL 20 Meq TABLET PO ONE (13:58)
[2023-04-23] MEDS: ACETAMINOPHEN 325 MG TAB PO PRN (14:01)
[2023-04-23] MEDS: MAGNESIUM SULFATE 1GM/100ML 100 ML IV SCH (14:01)
[2023-04-23] MEDS: cefTRIAXone 1GM/50ML D5W 50 ML IV ONE (17:00)
[2023-04-23] MEDS: TEMAZEPAM 15 MG CAP PO PRN (21:43)
[2023-04-23] MEDS: MAGNESIUM OXIDE 400 MG TAB PO SCH (21:43)
[2023-04-24] VITALS (8 sets, daily range): BP systolic 98–139; BP diastolic 39–68; PULSE 70–81; RESP 18–19; TEMP 97.7–98.5; O2SAT 95–98
[2023-04-24 05:56] LABS: Anion Gap 4 (5-15); Calcium 9.3 mg/dL (8.7-10.4); Carbon Dioxide 30 mmol/L (20-30); Chloride 97 mmol/L (98-107); Sodium 131 mmol/L (136-145)
[2023-04-24 06:02] LABS: BUN/Creatinine Ratio 10.1 (10.0-20.0); Blood Urea Nitrogen 8 mg/dL (9-23); Glucose 97 mg/dL (74-106); Magnesium 1.9 mg/dL (1.6-2.6)
[2023-04-24] MEDS: cefTRIAXone 1GM/50ML D5W 50 ML IV SCH (09:00)
[2023-04-24] MEDS: DOCUSATE SOD 100 MG CAP PO PRN (11:01)
[2023-04-24] MEDS ORDERED: WARF4TAB70 PO (15:28)
[2023-04-24] MEDS: TEMAZEPAM 15 MG CAP PO PRN (21:28)
[2023-04-24] MEDS: PREGABALIN 25 MG CAP PO SCH (21:28)
[2023-04-25] VITALS (8 sets, daily range): BP systolic 107–139; BP diastolic 40–60; PULSE 66–82; RESP 17–20; TEMP 97.8–98.3; O2SAT 94–98
[2023-04-25 07:03] LABS: Anion Gap 3 (5-15); Carbon Dioxide 33 mmol/L (20-30); Chloride 96 mmol/L (98-107); Potassium 4.3 mmol/L (3.5-5.1); Sodium 132 mmol/L (136-145)
[2023-04-25 07:04] LABS: Calcium 9.5 mg/dL (8.5-10.1)
[2023-04-25 07:08] LABS: Basophils # (auto) 0.1 10 ^3/uL (0-0.2); Eosinophils # (auto) 0.1 10 ^3/uL (0-0.8); Eosinophils % (auto) 1.7 % (0.0-7.0); Hematocrit 37.9 % (36.0-46.0); Hemoglobin 12.4 g/dL (12.2-16.2); Lymphocytes # (auto) 1.2 10 ^3/uL (0.4-5.4); Lymphocytes % (auto) 16.3 % (10.0-50.0); Mean Corpuscular Hemoglobin 30.4 pg (28.0-32.0); Mean Corpuscular Hgb Conc. 32.7 g/dL (32.0-36.0); Monocytes # (auto) 0.9 10 ^3/uL (0-1.3); Monocytes % (auto) 11.8 % (0.0-12.0); Neutrophils # (auto) 5.2 10 ^3/uL (1.6-8.6); Neutrophils % (auto) 69.2 % (37.0-80.0); Nucleated Red Blood Cells % 0.1 %; Red Blood Cells 4.08 10^6/uL (4.0-5.20); Red Cell Distribution Width 13.7 % (11.8-14.3); White Blood Cell 7.5 10^3/uL (4.4-10.8)
[2023-04-25 07:09] LABS: BUN/Creatinine Ratio 14.1 (10.0-20.0); Blood Urea Nitrogen 11 mg/dL (9-23); Glucose 85 mg/dL (74-106)
[2023-04-26] VITALS (9 sets, daily range): BP systolic 98–141; BP diastolic 40–65; PULSE 65–89; RESP 14–18; TEMP 97.8–98.5; O2SAT 92–97
[2023-04-26 06:18] LABS: Anion Gap 3 (5-15); Carbon Dioxide 32 mmol/L (20-30); Chloride 93 mmol/L (98-107); Potassium 4.1 mmol/L (3.5-5.1); Sodium 128 mmol/L (136-145)
[2023-04-26 06:19] LABS: Calcium 9.3 mg/dL (8.5-10.1)
[2023-04-26 06:24] LABS: BUN/Creatinine Ratio 15.4 (10.0-20.0); Blood Urea Nitrogen 12 mg/dL (9-23); Glucose 78 mg/dL (74-106)
[2023-04-26] MEDS ORDERED: SODIUM CHL 3% 500 ML IV ONE (09:15)
[2023-04-26] MEDS: SODIUM CHL 3% 500 ML IV ONE (12:41)
[2023-04-27 01:00] VITALS: BP 106/40; PULSE 65; RESP 12; TEMP 97.4; O2SAT 98
[2023-04-27 05:26] VITALS: BP 119/40; PULSE 75; RESP 14; TEMP 98.4; O2SAT 95
[2023-04-27 06:39] LABS: Potassium 3.8 mmol/L (3.5-5.1)
[2023-04-27 06:40] LABS: Anion Gap 5 (5-15); Carbon Dioxide 27 mmol/L (20-30)
[2023-04-27 06:41] LABS: Calcium 8.8 mg/dL (8.5-10.1)
[2023-04-27 06:45] LABS: Glucose 82 mg/dL (74-106)
[2023-04-27 06:46] LABS: BUN/Creatinine Ratio 16.2 (10.0-20.0); Blood Urea Nitrogen 12 mg/dL (9-23)
[2023-04-27 06:49] LABS: Chloride 113 mmol/L (98-107); Sodium 145 mmol/L (136-145)
[2023-04-27 08:38] VITALS: BP 122/57; PULSE 89; RESP 16; TEMP 98.1; O2SAT 96
[2023-04-27 12:47] VITALS: BP 118/47; PULSE 78; RESP 16; TEMP 97.9; O2SAT 95
[2023-04-27 16:30] VITALS: BP 131/56; PULSE 77; RESP 17; TEMP 97.6; O2SAT 93
== END 2023-04-27 16:38 | disposition home health service (06) | DRG 74 ==
LOC: ER 08:58 → TELE-WESTW 12:41 → TELE 12:41 → TELE-WESTW 22:25 → WEST WING 04-25 16:46
PROVIDERS: ADMIT Nurse Practitioner Family; ATTEND Internal Medicine
PROC: 0HQ0XZZ Repair Scalp Skin, External Approach (ICD-10-PCS; principal; 2023-04-22)
DX: G90.8 Other disorders of autonomic nervous system (principal); E87.1 Hypo-osmolality and hyponatremia; S32.039A Unspecified fracture of third lumbar vertebra, initial encounter for closed fracture; I48.20 Chronic atrial fibrillation, unspecified; I50.22 Chronic systolic (congestive) heart failure; N30.00 Acute cystitis without hematuria; E87.6 Hypokalemia; E78.5 Hyperlipidemia, unspecified; E86.1 Hypovolemia; S01.81XA Laceration without foreign body of other part of head, initial encounter; S09.90XA Unspecified injury of head, initial encounter; R56.9 Unspecified convulsions; D72.829 Elevated white blood cell count, unspecified; K21.9 Gastro-esophageal reflux disease without esophagitis; I11.0 Hypertensive heart disease with heart failure; J45.909 Unspecified asthma, uncomplicated; G62.9 Polyneuropathy, unspecified; W18.39XA Other fall on same level, initial encounter; M48.061 Spinal stenosis, lumbar region without neurogenic claudication; R63.1 Polydipsia; Z90.710 Acquired absence of both cervix and uterus; Z90.49 Acquired absence of other specified parts of digestive tract; Z95.2 Presence of prosthetic heart valve; Z91.048 Other nonmedicinal substance allergy status; Y93.89 Activity, other specified; Y92.89 Other specified places as the place of occurrence of the external cause; Y99.8 Other external cause status
CPT/HCPCS: 36415; 70450; 71045; 72100; 72131; 80048; 80053; 81001; 82570; 82962; 83735; 83930; 83935; 84100; 84300; 84443; 84484; 85025; 85610; 85730; 93005; 96361; 96365; 97110; 97116; 97163; 97530; G0378; J2405

== ENCOUNTER → 2024-04-05 | Outpatient (CLI) | payer MEDICARE, OTHER ==
[~2024-04-05] MED LIST changes: -ALBU0.084 NEB; -ALBUAER3 IN; -METO-159 PO; -MULT-927 PO; +PREG50CA PO; -SACU1TAB PO; +TEMA30CA PO; -WARF4TAB69 PO; +WARF4TAB70 PO
== END | disposition home or self-care (01) ==
LOC: Rad HDHVI 13:46
PROVIDERS: ATTEND Internal Medicine Cardiovascular Disease
DX: I10 Essential (primary) hypertension (principal)
CPT/HCPCS: 93306

== ENCOUNTER → 2024-04-08 | Outpatient (CLI) | payer MEDICARE, OTHER | END | disposition home or self-care (01) | LOC: Rad HDHVI 14:45 | PROVIDERS: ATTEND Internal Medicine Cardiovascular Disease | DX: I11.0 Hypertensive heart disease with heart failure (principal); I50.33 Acute on chronic diastolic (congestive) heart failure | CPT/HCPCS: 93880 ==

== ENCOUNTER 2024-06-18 19:14 | Inpatient (IN) | payer MEDICARE, OTHER ==
[~2024-06-18] VITALS: Ht 162.6 cm; Wt 49.6 kg
--- NOTE | 2024-06-18 19:38 | ED.PDOC ---
History of Present Illness HPI Comments 73-year-old female with a history of paroxysmal atrial fibrillation now complains of palpitations rapid heartbeat for the last 4 hours. Patient states that she saw her doctor for similar symptoms last week and was started on amiodarone and the symptoms seemed to get worse after starting the amiodarone. Patient denies chest pain Chief Complaint: Palpitations Time Seen by MD: 19:18 Primary Care Provider: DIANA Reviewed Notes: Household Appliances Service Technician Notes Allergies: Coded Allergies: Latex (Verified Allergy, Unknown, 06/18/24) Uncoded Allergies: DAIRY (Allergy, Unknown, 04/22/23) TAPE (Allergy, Unknown, 12/16/19) Home Meds Reported Medications Warfarin Sodium (Warfarin Sodium) 1 Mg Tab, 1 TAB PO DAILY 04/24/23 Pregabalin (Lyrica) 50 Mg Cap, 50 MG PO BID, CAP 04/22/23 Temazepam (Temazepam) 30 Mg Cap, 30 MG PO QHSP PRN for FOR INSOMNIA, CAP 04/22/23 Biotin (SUPER BIOTIN) 5,000 Mcg Cap, 5000 MCG PO QAM for SUPPLEMENT 12/04/19 Oyster Shell Calcium (Calcium) 500 Mg Tab, 500 MG PO QPM for SUPPLEMENT 12/04/19 Esomeprazole Magnesium Trihydr (Nexium) 40 Mg Cap, 1 CAP PO QAM for GERD 12/04/19 Metoprolol Tartrate (Metoprolol Tartrate) 50 Mg Tab, 50 MG PO HS for HYPERTENSIO N 12/04/19 Simvastatin (Simvastatin) 40 Mg Tab, 40 MG PO QPM for HIGH CHOLESTEROL 12/04/19 Information Source: Patient, Emergency Med Personnel Mode of Arrival: EMS Severity: Moderate Timing: Days Duration: Intermittent Prehospital treatment: 12 Lead EKG Past Medical History PAST MEDICAL HISTORY: AFIB, GERD, High Lipids, HTN Surgical History: Appendectomy, Hysterectomy SURVEILLANCE OFFICER History: No Pertinent SURVEILLANCE OFFICER History Family History Family History: Unobtainable Social History Smoker: Non-Smoker Alcohol: Occasionally Drugs: Denies Drug Use Lives In: Home Constitutional: reports: fatigue Cardiovascular: reports: irregular heart beat, palpitations All Other Systems: Reviewed and Negative Physical Exam Exam Comments Elderly General Appearance: Mild Distress HEENT: Normal ENT Inspection, Pharynx Normal, TMs Normal Neck: Full Range of Motion, Non-Tender, Normal, Normal Inspection Respiratory: Chest Non-Tender, Lungs Clear, No Accessory Muscle Use, No Respiratory Distress, Normal Breath Sounds Cardiovascular: No Edema, No JVD, No Murmur, No Gallop, Tachycardia, Other ( Irregularly irregular rhythm) Breast Exam: Deferred Gastrointestinal: No Organomegaly, Non Tender, No Pulsatile Mass, Normal Bowel Sounds, Soft Genitalia: Deferred Pelvic: Deferred Rectal: Deferred Extremities: No calf tenderness, Normal capillary refill, Normal inspection, Normal range of motion, Non-tender, No pedal edema Musculoskeletal : Apperance: Normal Neurologic: Alert, branch service representative II-XII nml as Tested, No Motor Deficits, Normal Affect, Normal Mood, No Sensory Deficits Cerebellar Function: Normal Reflexes: Normal Skin: Dry, Normal Color, Warm Lymphatic: No Adenopathy Was a procedure done? Was a procedure done?: No EKG EKG : Pulse Rate (adult): 116 Cardiac Rhythm: Afib Differential Dx Considerations may include: Differential diagnosis includes but not limited to: Atrial fibrillation, supraventricular tachycardia, coronary ischemia, pulmonary embolus, ventricular arrhythmia and others X-Ray, Labs, Meds, VS Vital Signs Date Time Temp Pulse Resp B/P (MAP) Pulse Ox O2 Delivery O2 Flow Rate FiO2 06/18/24 22:43 98.2 94 18 139/74 (95) 95 98.2 06/18/24 22:43 94 18 95 Room Air* 0 21 06/18/24 22:26 94 06/18/24 22:24 92 139/74 06/18/24 21:29 130 06/18/24 21:28 130 06/18/24 20:38 125 122/82 06/18/24 20:37 125 118/82 06/18/24 19:38 116 06/18/24 19:20 98.0 121 16 137/94 (108) 96 98.0 06/18/24 19:19 116 Lab Test 06/18/24 20:46 06/18/24 19:40 Range/Units Troponin I High Sensitivity 27 21 </=34 ng/L C-Reactive Protein High Sensitivity 0.17 <1.0 mg/dL Thyroid Stimulating Hormone (TSH) 18.44 H 0.55-4.78 uIU/mL White Blood Count 10.8 4.4-10.8 10^3/uL Red Blood Count 4.53 4.0-5.20 10^6/uL Hemoglobin 14.5 12.2-16.2 g/dL Hematocrit 41.8 36.0-46.0 % Mean Corpuscular Volume 92.2 80.0-100.0 fL Mean Corpuscular Hemoglobin 31.9 28.0-32.0 pg Mean Corpuscular Hemoglobin Concent 34.6 32.0-36.0 g/dL Red Cell Distribution Width 14.7 H 11.8-14.3 % Platelet Count 179 140-450 10^3/uL Mean Platelet Volume 10.5 6.9-10.8 fL Neutrophils (%) (Auto) 73.4 37.0-80.0 % Lymphocytes (%) (Auto) 12.8 10.0-50.0 % Monocytes (%) (Auto) 10.6 0.0-12.0 % Eosinophils (%) (Auto) 2.2 0.0-7.0 % Basophils (%) (Auto) 1.0 0.0-2.0 % Neutrophils # (Auto) 7.9 1.6-8.6 10 ^3/uL Lymphocytes # (Auto) 1.4 0.4-5.4 10 ^3/uL Monocytes # (Auto) 1.1 0-1.3 10 ^3/uL Eosinophils # (Auto) 0.2 0-0.8 10 ^3/uL Basophils # (Auto) 0.1 0-0.2 10 ^3/uL Nucleated Red Blood Cells 0.1 % Prothrombin Time 13.1 H 9.3-11.8 sec Prothrombin Time INR 1.26 H 0.9-1.15 Activated Partial Thromboplast Time 28.3 24.5-34.5 SEC Sodium Level 137 136-145 mmol/L Potassium Level 3.8 3.5-5.1 mmol/L Chloride Level 104 98-107 mmol/L Carbon Dioxide Level 23 20-31 mmol/L Anion Gap 10 5-15 Blood Urea Nitrogen 19 9-23 mg/dL Creatinine 1.05 H 0.550-1.02 mg/dL Glomerular Filtration Rate Calc 56 >90 mL/min BUN/Creatinine Ratio 18.1 10.0-20.0 Serum Glucose 119 H 74-106 mg/dL Calcium Level 9.1 8.7-10.4 mg/dL Total Bilirubin 1.0 0.2-1.0 mg/dL Aspartate Amino Transferase (AST) 12 L 13-40 U/L Alanine Aminotransferase (ALT) 16 7-40 U/L Alkaline Phosphatase 54 46-116 U/L B-Type Natriuretic Peptide 538.81 0-100 pg/mL Total Protein 6.5 5.7-8.2 g/dL Albumin 3.8 3.2-4.8 g/dL Vitamin B12 Level 286 211-911 pg/mL Vitamin D 25-Hydroxy 48.2 30.0-100 ng/mL Folic Acid 16.69 >5.38 ng/mL Current Medications Medications (Trade) Dose Ordered Sig/Robin Route Start Time Stop Time Status Last Admin Metoprolol Tartrate (Lopressor) 5 mg Q5M IV 06/18/24 19:45 06/18/24 22:10 DC 06/18/24 20:37 Metoprolol Tartrate (Lopressor Tablet) 25 mg ONCE ONCE PO 06/18/24 19:45 06/18/24 19:46 DC 06/18/24 20:38 Time of 1ST Reevaluation: 19:37 Reevaluation 1ST: Unchanged Patient Education/Counseling: Diagnosis, Treatment Family Education/Counseling: No Family Present Departure 1 Departure Time of Disposition: 23:00 Impression: Primary Impression: Atrial fibrillation with rapid ventricular response Additional Impression: Intermediate coronary syndrome Disposition: ADMITTED INPATIENT Admit to: [facility] Condition: Guarded Discharged With: Self Comments 73F with Symptomatic Atrial Fibrillation and RVR Chief Complaint: Palpitations and rapid heart rate History of Present Illness: 73-year-old female with known history of paroxysmal atrial fibrillation presents with palpitations and rapid heart rate for the past 4 hours. Patient was recently started on amiodarone by her primary physician last week for similar symptoms, but reports worsening of symptoms since initiation of the medication. Initial EKG demonstrates atrial fibrillation with rapid ventricular response at 116 beats per minute. Review of Systems: Constitutional: Denies fever, chills Cardiovascular: Positive for palpitations, rapid heart rate Respiratory: No shortness of breath All other systems reviewed and negative Medications: Amiodarone - recently started New medications given in ED: - Aspirin - Metoprolol Lab Results: Troponin: 27 (within normal limits) Chemistry panel: Unremarkable CBC: Unremarkable Imaging and Other Relevant Results: EKG: Atrial fibrillation with rapid ventricular response, rate 116 Medical Decision Making: Summary Statement: 73-year-old female with known atrial fibrillation presenting with symptomatic rapid ventricular response, recently started on amiodarone with worsening symptoms. Problem List: 1. Atrial fibrillation with RVR 2. Intermediate coronary syndrome 3. Medication-related concerns (worsening symptoms with amiodarone) Differential Diagnosis: 1. Acute coronary syndrome 2. Medication side effect 3. Thyroid dysfunction 4. Electrolyte imbalance 5. Infection ED Course: Patient received aspirin and metoprolol for rate control with partial improvement in heart rate. Given ongoing tachycardia and intermediate coronary risk, decision made to admit for further management. Assessment and Plan: 1. Atrial Fibrillation with RVR: - Partial response to initial rate control with metoprolol - Will require admission for ongoing management - Consider reassessment of antiarrhythmic strategy given worsening with amiodarone 2. Intermediate Coronary Syndrome: - Initial troponin within normal limits - Initiated on aspirin - Will require serial cardiac biomarkers Disposition: Admit to telemetry unit Billing Information: ICD-10: I48.91 - Unspecified atrial fibrillation ICD-10: R00.2 - Palpitations ICD-10: I24.8 - Other forms of acute ischemic heart disease Critical Care Note Critical Care Time?: Yes (35 min-critical care time only) Critical care comment: Total critical care time: Approximately 36 minutes Due to a high probability of clinically significant, life threatening deterioration, the patient required my highest level of preparedness to intervene emergently and I personally spent this critical care time directly and personally managing the patient. This critical care time included obtaining a history; examining the patient; pulse oximetry; ordering and review of studies; arranging urgent treatment with development of a management plan; evaluation of patient's response to treatment; frequent reassessment; and, discussions with other providers. This critical care time was performed to assess and manage the high probability of imminent, life-threatening deterioration that could result in multi-organ failure. It was exclusive of separately billable procedures and treating other patients. Stability Stability form required: No Heart Score Heart Score: Heart Score Response (Comments) Value History Moderate Suspicious 1 EKG Repolarization Disturb 1 Age >65 2 Risk Factors >3 or Hx ASHD 2 Troponin Normal limit 0 Total 6 HERMELINDA DOUGLAS MD June 18, 2024 19:38
[2024-06-18 19:51] LABS: Basophils # (auto) 0.1 10 ^3/uL (0-0.2); Eosinophils # (auto) 0.2 10 ^3/uL (0-0.8); Eosinophils % (auto) 2.2 % (0.0-7.0); Hematocrit 41.8 % (36.0-46.0); Hemoglobin 14.5 g/dL (12.2-16.2); Lymphocytes # (auto) 1.4 10 ^3/uL (0.4-5.4); Lymphocytes % (auto) 12.8 % (10.0-50.0); Mean Corpuscular Hemoglobin 31.9 pg (28.0-32.0); Mean Corpuscular Hgb Conc. 34.6 g/dL (32.0-36.0); Mean Corpuscular Volume 92.2 fL (80.0-100.0); Monocytes # (auto) 1.1 10 ^3/uL (0-1.3); Monocytes % (auto) 10.6 % (0.0-12.0); Neutrophils # (auto) 7.9 10 ^3/uL (1.6-8.6); Neutrophils % (auto) 73.4 % (37.0-80.0); Nucleated Red Blood Cells % 0.1 %; Platelet Count (auto) 179 10^3/uL (140-450); Red Blood Cells 4.53 10^6/uL (4.0-5.20); Red Cell Distribution Width 14.7 % (11.8-14.3); White Blood Cell 10.8 10^3/uL (4.4-10.8)
[2024-06-18 20:05] LABS: Alanine Aminotransferase 16 U/L (7-40); Albumin 3.8 g/dL (3.2-4.8); Alkaline Phosphatase 54 U/L (46-116); Anion Gap 10 (5-15); BUN/Creatinine Ratio 18.1 (10.0-20.0); Blood Urea Nitrogen 19 mg/dL (9-23); Calcium 9.1 mg/dL (8.7-10.4); Carbon Dioxide 23 mmol/L (20-31); Chloride 104 mmol/L (98-107); Potassium 3.8 mmol/L (3.5-5.1); Sodium 137 mmol/L (136-145); Total Protein 6.5 g/dL (5.7-8.2)
[2024-06-18 20:10] LABS: INR 1.26 (0.9-1.15); Partial Thromboplastin Time 28.3 SEC (24.5-34.5); Prothrombin Time 13.1 sec (9.3-11.8)
[2024-06-18 20:13] LABS: Aspartate Aminotransferase 12 U/L (13-40); Glucose 119 mg/dL (74-106)
[2024-06-18] MEDS: METOPROLOL TARTRATE 1MG/1ML-5ML VIAL IV SCH (20:37)
[2024-06-18] MEDS: ASPirin-EC 81 mg tab PO ONE (20:38)
[2024-06-18] MEDS: METOPROLOL TARTRATE 25 MG TAB PO ONE (20:38)
--- NOTE | 2024-06-18 21:30 | DVH ---
EXAMINATION: AP portable chest radiograph CLINICAL HISTORY: chest pain COMPARISON: XY CHEST PORTABLE on DOS: 04/22/23 FINDINGS: Multiple wires overlie the thorax. Patient is rotated to the left. Median sternotomy changes. Streaky opacity left lung base. Mild central interstitial prominence. No definite pleural effusion or pneumothorax. IMPRESSION: Left basilar opacities may reflect atelectasis and/or developing infiltrates. Nonspecific interstitial prominence which can be seen with edema, reactive airway changes as well as atypical / viral infection.
[2024-06-18 22:43] VITALS: PULSE 94; RESP 18; O2SAT 95
[2024-06-18] MEDS ORDERED: NITROGLYCERIN 0.4 MG SL TAB SL PRN (23:30)
[2024-06-19] MEDS: MORPHINE SULFATE INJ 2 MG/ml SYRG IV PRN (00:15)
[2024-06-19] MEDS: FUROSEMIDE 40 MG/4 ML VIAL IV ONE (00:15)
[2024-06-19 00:55] LABS: Erythrocyte Sedimentation Rate 3 mm/hr (0-20)
[2024-06-19 00:58] LABS: Folate (Folic Acid) 16.69 ng/mL (>5.38)
[2024-06-19] MEDS: WARFARIN SODIUM 5 MG TAB PO ONE (03:14)
--- NOTE | 2024-06-19 03:26 | DVHHP2 ---
History of Present Illness Reason for Visit: afib with rvr History of Present Illness 73-year-old female with history of paroxysmal atrial fibrillation, catheter ablation (2005), heart failure with reduced ejection fraction, and prior spinal surgery, presenting with 1 day of palpitations and tachycardia. She reports similar symptoms last week and was started on amiodarone by her leaf sucker operator dr Gustafson, he stopped amiodarone due to nausea and inability to eat. She reports weight loss and appears cachectic on exam. Denies chest pain. She had discontinued warfarin 5 days ago in preparation for a scheduled spinal procedure on Monday but self-restarted a low dose (2 mg) yesterday PMH: Atrial fibrillation Systolic heart failure Hyperlipidemia GERD Hypothyroidism? (new TSH 18) History of mechanical aortic valve Possible hypercoagulable state Moderate mitral regurgitation RORY possibly due to volume depletion PSH: Back surgery Cardiac surgery with wires visible through skin Catheter ablation Social History Smoker: Non-Smoker Alcohol: Occasionally Drugs: Denies Drug Use Lives In: Home Review of Systems Constitutional: No: Fever, Chills, Sweats, Weakness, Malaise, Other Eyes: No: Pain, Vision change, Conjunctivae inflammation, Eyelid inflammation, Other, Redness ENT: No: Ear pain, Ear discharge, Nose pain, Nose discharge, Nose congestion, Mouth pain, Mouth swelling, Throat pain, Throat swelling, Other Respiratory: Shortness of breath; No: Cough, Dry, SOB with excertion, Wheezing, Hemoptysis, Pleuritic Pain, Sputum, Wheezing, Other Cardiovascular: Chest Pain, Palpitations; No: Orthopnea, Paroxysmal Noc. Dyspnea, Edema, Lt Headedness, Other Gastrointestinal: No: Nausea, Vomiting, Abdominal Pain, Diarrhea, Constipation, Melena, Hematochezia, Other Genitourinary: No Dysuria, No Frequency, No Incontinence, No Hematuria, No Retention, No Other Musculoskeletal: No: other, neck pain, shoulder pain, arm pain, back pain, hand pain, leg pain, foot pain Skin: No: Rash, Lesions, Jaundice, Bruising, Other Neurological: No: Weakness, Numbness, Incoordination, Change in speech, Confusion, Seizures, Other Allergies: Coded Allergies: Latex (Verified Allergy, Unknown, 06/18/24) Uncoded Allergies: DAIRY (Allergy, Unknown, 04/22/23) TAPE (Allergy, Unknown, 12/16/19) Medications Current Medications Medications Dose Ordered Sig/Roibn Route Start Time Stop Time Status Last Admin Dose Admin Warfarin Sodium 5 mg PER PHARMACY PO 06/18/24 23:45 UNV Aspirin 81 mg DAILY PO 06/19/24 10:00 Metoprolol Succinate 50 mg DAILY PO 06/19/24 10:00 Furosemide 40 mg DAILY PO 06/19/24 10:00 Pantoprazole Sodium 40 mg DAILY IV 06/19/24 10:00 Levothyroxine Sodium 25 mcg QAM@0600 PO 06/19/24 06:00 Exam Vital Signs Vital Signs Date Time Temp Pulse Resp B/P (MAP) Pulse Ox O2 Delivery O2 Flow Rate FiO2 06/19/24 01:06 83 18 128/74 06/19/24 01:00 95 06/18/24 22:43 98.2 98.2 06/18/24 22:43 Room Air* 0 21 General Appearance: Alert, Oriented X3, mild distress HEENT: Atraumatic, PERRLA Respiratory: Clear to auscultation, Normal air movement, Other Cardiovascular: Other (irregular, aortic click, sternotomy ) Abdominal: Normal bowel sounds Extremities: No clubbing, No cyanosis, No edema Skin: No rashes, No breakdown Neuro: Normal gait, Normal speech Psych/Mental Status: Mental status NL, Mood NL Labs/Xrays Labs Test 06/19/24 03:04 06/18/24 23:53 06/18/24 20:46 06/18/24 19:40 Range/Units Erythrocyte Sedimentation Rate 3 0-20 mm/hr C-Reactive Protein High Sensitivity 0.17 <1.0 mg/dL Thyroid Stimulating Hormone (TSH) 18.44 H 0.55-4.78 uIU/mL White Blood Count 10.8 4.4-10.8 10^3/uL Red Blood Count 4.53 4.0-5.20 10^6/uL Hemoglobin 14.5 12.2-16.2 g/dL Hematocrit 41.8 36.0-46.0 % Mean Corpuscular Volume 92.2 80.0-100.0 fL Mean Corpuscular Hemoglobin 31.9 28.0-32.0 pg Mean Corpuscular Hemoglobin Concent 34.6 32.0-36.0 g/dL Red Cell Distribution Width 14.7 H 11.8-14.3 % Platelet Count 179 140-450 10^3/uL Mean Platelet Volume 10.5 6.9-10.8 fL Neutrophils (%) (Auto) 73.4 37.0-80.0 % Lymphocytes (%) (Auto) 12.8 10.0-50.0 % Monocytes (%) (Auto) 10.6 0.0-12.0 % Eosinophils (%) (Auto) 2.2 0.0-7.0 % Basophils (%) (Auto) 1.0 0.0-2.0 % Neutrophils # (Auto) 7.9 1.6-8.6 10 ^3/uL Lymphocytes # (Auto) 1.4 0.4-5.4 10 ^3/uL Monocytes # (Auto) 1.1 0-1.3 10 ^3/uL Eosinophils # (Auto) 0.2 0-0.8 10 ^3/uL Basophils # (Auto) 0.1 0-0.2 10 ^3/uL Nucleated Red Blood Cells 0.1 % Prothrombin Time 13.1 H 9.3-11.8 sec Prothrombin Time INR 1.26 H 0.9-1.15 Activated Partial Thromboplast Time 28.3 24.5-34.5 SEC Sodium Level 137 136-145 mmol/L Potassium Level 3.8 3.5-5.1 mmol/L Chloride Level 104 98-107 mmol/L Carbon Dioxide Level 23 20-31 mmol/L Anion Gap 10 5-15 Blood Urea Nitrogen 19 9-23 mg/dL Creatinine 1.05 H 0.550-1.02 mg/dL Glomerular Filtration Rate Calc 56 >90 mL/min BUN/Creatinine Ratio 18.1 10.0-20.0 Serum Glucose 119 H 74-106 mg/dL Calcium Level 9.1 8.7-10.4 mg/dL Total Bilirubin 1.0 0.2-1.0 mg/dL Aspartate Amino Transferase (AST) 12 L 13-40 U/L Alanine Aminotransferase (ALT) 16 7-40 U/L Alkaline Phosphatase 54 46-116 U/L B-Type Natriuretic Peptide 538.81 0-100 pg/mL Total Protein 6.5 5.7-8.2 g/dL Albumin 3.8 3.2-4.8 g/dL Vitamin B12 Level 286 211-911 pg/mL Vitamin D 25-Hydroxy 48.2 30.0-100 ng/mL Folic Acid 16.69 >5.38 ng/mL Assessment/Plan Assessment/Plan #Atrial fibrillation with RVR #Acute exacerbation of systolic heart failure #S/P mechanical aortic valve #Hypercoagulable state #Hyperlipidemia #s/p afib ablation #moderate mitral regurgation #RORY due to VMN #Subclinical Hypothyroidism, TSH 18 #GERD Admit Telemetry: episodes of HR 180 at 3 am IV metoprolol given Furosemide IV given Metoprolol 50 mg PO Amiodarone 400 mg PO: restart warfarin 5 mg Levothyroxine 25 mcg Furosemide 40 mg PO Protonix IV daily Patient is being having episodes of HR 180, amiodarone was restarted, please f/u of nauseas, also TSH is found on 18, low dose of levothyroxine is started 25 mcg due to age and afib, INR should be 2-3, warfarin restarted, Dr Gustafson, leaf sucker operator is consulted, new ECHO is ordered. BP allows diuresis, furosemide IV once, consider titration of GDMT, pending lipid panel Case discussed with Dr Michael Full code. Plan discussed with: Patient, Other (rn) My Orders Orders - BARBARA YIP Procedure Category Date Status Time Admit ADMIT 06/18/24 Transmitted 23:20 Code Status CODE 06/18/24 Transmitted 23:20 Vital Signs [facility] 06/18/24 In Process 23:20 Review Orders With [facility] 06/18/24 In Process Adm. 23:20 Notify Of Changes [facility] 06/18/24 In Process From Base 23:20 Advance Directive [facility] 06/18/24 In Process 23:20 Patient Condition ORDERS 06/18/24 Transmitted 23:20 Allergies [facility] 06/18/24 In Process 23:20 Oxygen By Nasal RT 06/18/24 Transmitted Cannula 23:20 Stat Ekg For Chest [facility] 06/18/24 In Process Pain 23:20 Notify Of Changes [facility] 06/18/24 In Process From Base 23:20 Gis Engineer For [facility] 06/18/24 In Process 24 Hours 23:20 Emergency Dysrhythmia [facility] 06/18/24 In Process Protocol 23:20 Rhythm Strips Once [facility] 06/18/24 In Process Every Shift 23:20 Warfarin Per Rx PHA 06/18/24 Pending Protocol (Coumadin 23:45 Metoprolol Xl PHA 06/19/24 In Process Succinate (Toprol Xl) 10:00 Rapid Influenza A&B LAB 06/18/24 Logged 23:37 Covid19 Antigen [facility] LAB 06/18/24 Logged Aspirin Tablet PHA 06/19/24 In Process 10:00 Cardiac DIET 06/19/24 Transmitted Diet-2gna,Lofat,Lochol Breakfast Consult For Nutrition NOURISH 06/18/24 Transmitted 23:40 Urinalysis LAB 06/18/24 Logged 23:40 Furosemide Tablet PHA 06/19/24 In Process (Lasix Tablet) 10:00 *Consult Dr[address] Gustafson CONS 06/18/24 Transmitted [place] 23:40 Echo 2d Mode Cardiac US 06/18/24 Logged DOP 23:40 Pantoprazole PHA 06/19/24 In Process (Protonix) 10:00 Free T4 (Free LAB 06/19/24 Logged Thyroxine) 02:10 Free T3 LAB 06/19/24 Logged 02:10 Levothyroxine Tablet PHA 06/19/24 In Process (Synthroid Tablet) 06:00 Date of Service: June 18, 2024 Billing Provider: GUALBERTO MICHAEL MD Common Visit Codes: [id number] INP/OBS CARE (HIGH) Secondary Visit Codes: [id number] CARE PLAN 30 MINUTES BARBARA YIP RESIDENT June 19, 2024 03:26
[2024-06-19 04:01] LABS: INR 1.17 (0.9-1.15); Partial Thromboplastin Time 28.2 SEC (24.5-34.5); Prothrombin Time 12.2 sec (9.3-11.8)
[2024-06-19] MEDS: AMIODARONE HCL 200 MG TAB PO SCH (04:25)
[2024-06-19 04:58] LABS: Urine Bacteria None Seen /hpf (None Seen)
[2024-06-19 05:14] LABS: Urine Blood Negative /uL (Negative); Urine Clarity Clear (Clear); Urine Color Colorless (Yellow); Urine Hyaline Cast FEW /lpf (0 - 2); Urine Protein, UAD Negative (Negative); Urine Specific Gravity 1.005 (1.001-1.035); Urine Squamous Epithelial Cell None Seen /hpf (<5); Urine Urobilinogen Normal (Negative); Urine WBC 13 /HPF (0-5); Urine pH 5.5 (5.0-9.0)
[2024-06-19 06:14] LABS: Basophils # (auto) 0.1 10 ^3/uL (0-0.2); Basophils % (auto) 0.6 % (0.0-2.0); Eosinophils # (auto) 0.1 10 ^3/uL (0-0.8); Eosinophils % (auto) 0.9 % (0.0-7.0); Hematocrit 47.7 % (36.0-46.0); Hemoglobin 16.2 g/dL (12.2-16.2); Lymphocytes # (auto) 1.2 10 ^3/uL (0.4-5.4); Lymphocytes % (auto) 10.9 % (10.0-50.0); Mean Corpuscular Hgb Conc. 33.9 g/dL (32.0-36.0); Mean Corpuscular Volume 91.4 fL (80.0-100.0); Monocytes # (auto) 1.1 10 ^3/uL (0-1.3); Monocytes % (auto) 9.9 % (0.0-12.0); Neutrophils # (auto) 8.9 10 ^3/uL (1.6-8.6); Neutrophils % (auto) 77.7 % (37.0-80.0); Nucleated Red Blood Cells % 0.1 %; Platelet Count (auto) 189 10^3/uL (140-450); Red Blood Cells 5.22 10^6/uL (4.0-5.20); Red Cell Distribution Width 14.9 % (11.8-14.3); White Blood Cell 11.5 10^3/uL (4.4-10.8)
[2024-06-19 06:15] LABS: Free T3 2.39 pg/mL (2.3-4.2); Free T4 (Free Thyroxine) 1.67 ng/dL (0.89-1.76)
[2024-06-19 06:28] LABS: Alanine Aminotransferase 15 U/L (7-40); Albumin 4.4 g/dL (3.2-4.8); Alkaline Phosphatase 58 U/L (46-116); Anion Gap 14 (5-15); Aspartate Aminotransferase 14 U/L (13-40); BUN/Creatinine Ratio 12.7 (10.0-20.0); Bilirubin, Total 1.2 mg/dL (0.2-1.0); Blood Urea Nitrogen 13 mg/dL (9-23); Calcium 9.8 mg/dL (8.7-10.4); Carbon Dioxide 21 mmol/L (20-31); Chloride 102 mmol/L (98-107); HDL Cholesterol 58 mg/dL (40-59); Sodium 137 mmol/L (136-145); Total Protein 7.6 g/dL (5.7-8.2); Triglycerides 124 mg/dL (< 150)
[2024-06-19 06:31] LABS: Cholesterol 261 mg/dL (< 200); Glucose 107 mg/dL (74-106); LDL Cholesterol 190 mg/dL (< 100); Potassium 3.5 mmol/L (3.5-5.1)
[2024-06-19] MEDS: LEVOTHYROXINE SODIUM 25 MCG TAB PO SCH (06:32)
[2024-06-19] MEDS: AMIODARONE 360mg/200mL PREMIX 200 ML IV ONE (09:45)
[2024-06-19] MEDS: AMIODARONE BOLUS KIT 100 ML IV ONE (09:51)
[2024-06-19] MEDS: PANTOPRAZOLE 40 MG/10 ML VIAL INJ IV SCH (11:04)
[2024-06-19] MEDS: METOPROLOL SUCCINATE XL 50 MG TAB PO SCH (11:05)
[2024-06-19] MEDS: ASPirin 81 mg TAB PO SCH (11:05)
[2024-06-19] MEDS: FUROSEMIDE 40 MG TAB PO SCH (11:06)
--- NOTE | 2024-06-19 11:58 | DVHPN2 ---
Progress Note Date Seen: June 19, 2024 Medical Necessity Reason Pt with a Central, PICC or Fol: Yes The following are medically ne: Posada Catheter Reason for posada catheter: Strict I&O Subjective Patient reports: No new complaints Review of Systems: HEENT:Normal, CVS:Normal, RESPIRATORY:Normal, GI:Normal, :Normal, MSK:Normal, NEURO:Normal Objective vital signs Vital Sign Date Time Temp Pulse Resp B/P (MAP) Pulse Ox O2 Delivery O2 Flow Rate FiO2 06/19/24 11:06 124/73 06/19/24 11:05 104 06/19/24 10:00 16 97 06/19/24 07:28 Room Air* 0 21 06/19/24 07:28 96.8 96.8 medications Current Medications Medications Dose Ordered Sig/Robin Route Start Time Stop Time Status Last Admin Dose Admin Aspirin 81 mg DAILY PO 06/19/24 10:00 06/19/24 11:05 81 MG Metoprolol Succinate 50 mg DAILY PO 06/19/24 10:00 06/19/24 11:05 50 MG Furosemide 40 mg DAILY PO 06/19/24 10:00 06/19/24 11:06 40 MG Pantoprazole Sodium 40 mg DAILY IV 06/19/24 10:00 06/19/24 11:04 40 MG Levothyroxine Sodium 25 mcg QAM@0600 PO 06/19/24 06:00 06/19/24 06:32 25 MCG Amiodarone HCl 400 mg DAILY PO 06/19/24 04:00 Hold 06/19/24 04:25 400 MG Warfarin Sodium -Hazardous Drug -DO NOT CRUSH OR ... PER PHARMACY PO 06/19/24 08:30 Examination: GENERAL:Normal, HEENT:Normal, NECK:Normal, LUNGS:Normal, CVS:Normal, CVS:Abnormal (IRREGULAR), ABDOMEN:Normal, MSK:Normal, SKIN:Normal, NEURO:Normal, :Normal laboratory and microbiology Laboratory Tests 06/19/24 05:00 Test 06/19/24 05:00 Range/Units Serum Glucose 107 H 74-106 mg/dL Problem List/Assessment/Plan Problem List/Assessment/Plan #1 a fib with rvr s/p ablation: iv amiod, coumadin #2 s/p avr #3 hypothyroidism - uncontrolled: repeat tsh #4 hyperlipidemia #5 gerd advance care planning- full code for now- time spent 21 mins Plan discussed with: Patient Date of Service: June 19, 2024 Billing Provider: MONICA ALICEA MD Common Visit Codes: [id number] INP/OBS CARE(HIGH) Secondary Visit Codes: [id number] CARE PLAN 30 MINUTES MONICA ALICEA MD June 19, 2024 11:58
--- NOTE | 2024-06-19 13:26 | DVHPN2 ---
Progress Note - Dictate Date Seen: June 19, 2024 Medical Necessity Reason Pt with a Central, PICC or Fol: Yes The following are medically ne: Posada Catheter Reason for posada catheter: Strict I&O Subjective PT WITH ORG HEART DISEASE S/P OPEN HEART SURGERY S/P AVR HX AFIB ABLATION HTN HYPOTHROIDISM CACHEXIA STERNAL WIRE PAIN vital signs Vital Sign Date Time Temp Pulse Resp B/P (MAP) Pulse Ox O2 Delivery O2 Flow Rate FiO2 06/19/24 11:06 124/73 06/19/24 11:05 104 06/19/24 10:00 16 97 06/19/24 07:28 Room Air* 0 21 06/19/24 07:28 96.8 96.8 medications Current Medications Medications Dose Ordered Sig/Robin Route Start Time Stop Time Status Last Admin Dose Admin Aspirin 81 mg DAILY PO 06/19/24 10:00 06/19/24 11:05 81 MG Metoprolol Succinate 50 mg DAILY PO 06/19/24 10:00 06/19/24 11:05 50 MG Furosemide 40 mg DAILY PO 06/19/24 10:00 06/19/24 11:06 40 MG Pantoprazole Sodium 40 mg DAILY IV 06/19/24 10:00 06/19/24 11:04 40 MG Levothyroxine Sodium 25 mcg QAM@0600 PO 06/19/24 06:00 06/19/24 06:32 25 MCG Amiodarone HCl 400 mg DAILY PO 06/19/24 04:00 Hold 06/19/24 04:25 400 MG Warfarin Sodium -Hazardous Drug -DO NOT CRUSH OR ... PER PHARMACY PO 06/19/24 08:30 laboratory and microbiology Laboratory Tests 06/19/24 05:00 Test 06/19/24 05:00 Range/Units Serum Glucose 107 H 74-106 mg/dL Problem List ORG HEART DISEASE S/P OPEN HEART SURGERY S/P AVR HX AFIB ABLATION HTN HYPOTHROIDISM CACHEXIA STERNAL WIRE PAIN Assessment/Plan AMIODARONE CONT ANTICOAGULATION Plan discussed with: Patient, Daughter DIANA SMALLWOOD MD June 19, 2024 13:26
[2024-06-19] MEDS: ONDANSETRON HCL 4 MG/2 ML VIAL IV ONE (13:35)
[2024-06-19] MEDS: AMIODARONE 360mg/200mL PREMIX 200 ML IV SCH (14:52)
[2024-06-19 16:00] VITALS: PULSE 61; RESP 18; O2SAT 96
[2024-06-19 16:33] VITALS: BP 131/65; PULSE 61; RESP 18; TEMP 97.5; O2SAT 96
[2024-06-19 20:00] VITALS: PULSE 78; PULSE 92; RESP 19; O2SAT 91
[2024-06-19 21:00] VITALS: BP 118/78; PULSE 78; RESP 19; TEMP 97.8; O2SAT 91
[2024-06-19] MEDS: TEMAZEPAM 15 MG CAP PO PRN (21:26)
[2024-06-20] VITALS (8 sets, daily range): BP systolic 100–145; BP diastolic 63–86; PULSE 54–109; RESP 15–19; TEMP 97.5–98; O2SAT 91–96
[2024-06-20 07:09] LABS: Anion Gap 14 (5-15); Carbon Dioxide 24 mmol/L (20-31); Sodium 136 mmol/L (136-145)
[2024-06-20 07:12] LABS: Chloride 98 mmol/L (98-107); Potassium 3.3 mmol/L (3.5-5.1)
[2024-06-20 07:13] LABS: INR 1.7 (0.9-1.15); Prothrombin Time 17.1 sec (9.3-11.8)
[2024-06-20 07:15] LABS: BUN/Creatinine Ratio 15.3 (10.0-20.0); Basophils # (auto) 0.1 10 ^3/uL (0-0.2); Basophils % (auto) 0.6 % (0.0-2.0); Blood Urea Nitrogen 18 mg/dL (9-23); Eosinophils # (auto) 0.1 10 ^3/uL (0-0.8); Eosinophils % (auto) 1.2 % (0.0-7.0); Glucose 94 mg/dL (74-106); Hematocrit 48.5 % (36.0-46.0); Hemoglobin 16.3 g/dL (12.2-16.2); Lymphocytes # (auto) 1.4 10 ^3/uL (0.4-5.4); Lymphocytes % (auto) 11.8 % (10.0-50.0); Mean Corpuscular Hemoglobin 30.4 pg (28.0-32.0); Mean Corpuscular Hgb Conc. 33.7 g/dL (32.0-36.0); Mean Corpuscular Volume 90.4 fL (80.0-100.0); Monocytes # (auto) 1.3 10 ^3/uL (0-1.3); Monocytes % (auto) 11.5 % (0.0-12.0); Neutrophils # (auto) 8.8 10 ^3/uL (1.6-8.6); Neutrophils % (auto) 74.9 % (37.0-80.0); Nucleated Red Blood Cells % 0.1 %; Platelet Count (auto) 199 10^3/uL (140-450); Red Blood Cells 5.36 10^6/uL (4.0-5.20); Red Cell Distribution Width 14.8 % (11.8-14.3); White Blood Cell 11.7 10^3/uL (4.4-10.8)
[2024-06-20 07:16] LABS: Magnesium 1.1 mg/dL (1.6-2.6)
--- NOTE | 2024-06-20 09:46 | ECG ---
[facility] Test Date: 2024-06-18 Test Time: 19:19:14 Pat Name: MOSES ROGERS Department: ED Room: 0215T A Gender: F Director Of Institutional Giving: ESTELLA : 1950 Requested By: HERMELINDA DOUGLAS Order Number: [id number] Reading MD: Daniel Long Measurements Intervals [place] Rate: 116 P: 0 DE: 0 QRS: 9 QRSD: 97 T: 256 QT: 338 QTc: 470 Interpretive Statements Atrial fibrillation Ventricular bigeminy Probable LVH with secondary repol abnrm Electronically Signed On 06-20-2024 13:12:07 PDT by Daniel Long Please click the below link to view image of tracing.
--- NOTE | 2024-06-20 10:18 | DVHPN2 ---
Progress Note Date Seen: June 20, 2024 Medical Necessity Reason Pt with a Central, PICC or Fol: Yes The following are medically ne: Posada Catheter Reason for posada catheter: Strict I&O Subjective Patient reports: No new complaints Review of Systems: HEENT:Normal, CVS:Normal, RESPIRATORY:Normal, GI:Normal, :Normal, MSK:Normal, NEURO:Normal Objective vital signs Vital Sign Date Time Temp Pulse Resp B/P (MAP) Pulse Ox O2 Delivery O2 Flow Rate FiO2 06/20/24 09:21 137/63 06/20/24 09:21 78 06/20/24 08:00 16 91 Room Air* 0 06/20/24 05:00 98.0 98.0 Total Intake and Output 06/19/24 06/19/24 06/20/24 15:00 23:00 07:00 Intake Total 100 ml 316.4 ml 100 ml Output Total 400 ml 500 ml Balance 100 ml -83.6 ml -400 ml medications Current Medications Medications Dose Ordered Sig/Robin Route Start Time Stop Time Status Last Admin Dose Admin Aspirin 81 mg DAILY PO 06/19/24 10:00 06/20/24 09:20 81 MG Metoprolol Succinate 50 mg DAILY PO 06/19/24 10:00 06/20/24 09:21 50 MG Furosemide 40 mg DAILY PO 06/19/24 10:00 06/20/24 09:21 40 MG Pantoprazole Sodium 40 mg DAILY IV 06/19/24 10:00 06/20/24 09:22 40 MG Levothyroxine Sodium 25 mcg QAM@0600 PO 06/19/24 06:00 06/20/24 05:45 25 MCG Amiodarone HCl 400 mg DAILY PO 06/19/24 04:00 Hold 06/19/24 04:25 400 MG Warfarin Sodium -Hazardous Drug -DO NOT CRUSH OR ... PER PHARMACY PO 06/19/24 08:30 Ondansetron HCl 4 mg Q6HPRN PRN IV 06/19/24 13:30 Temazepam 15 mg HSPRN PRN PO 06/19/24 17:15 06/19/24 21:26 15 MG Examination: GENERAL:Normal, HEENT:Normal, NECK:Normal, LUNGS:Normal, CVS:Normal, CVS:Abnormal (irregular), ABDOMEN:Normal, MSK:Normal, SKIN:Normal, NEURO:Normal, :Normal laboratory and microbiology Laboratory Tests 06/20/24 05:49 Test 06/20/24 05:49 Range/Units Serum Glucose 94 74-106 mg/dL Problem List/Assessment/Plan Problem List/Assessment/Plan #1 a fib with rvr s/p ablation: iv amiod, coumadin, ?cardioversion #2 s/p avr #3 hypothyroidism - uncontrolled: repeat tsh, levothyroxine #4 hyperlipidemia #5 gerd advance care planning- full code for now- time spent 21 mins Plan discussed with: Patient My Orders My Orders Orders - MONICA ALICEA MD Procedure Category Date Status Time Ondansetron Hcl PHA 06/19/24 In Process (Zofran) 13:30 Transfer Orders XFER 06/19/24 Transmitted 14:28 Temazepam (Restoril) PHA 06/19/24 In Process 17:15 Date of Service: June 20, 2024 Billing Provider: MONICA ALICEA MD Common Visit Codes: [id number] INP/OBS CARE(HIGH) MONICA ALICEA MD June 20, 2024 10:18
[2024-06-20] MEDS: HYALURONIDASE 150 UNIT/1 ML SUBCUT ONE (11:04)
[2024-06-20] MEDS: WARFARIN SODIUM 1 MG TAB PO ONE (17:00)
[2024-06-20] MEDS: ENOXAPARIN SOD 60 MG/0.6 ML SYRINGE SC ONE (18:19)
[2024-06-20] MEDS: ONDANSETRON HCL 4 MG/2 ML VIAL IV PRN (19:50)
[2024-06-21] VITALS (8 sets, daily range): BP systolic 106–149; BP diastolic 71–85; PULSE 49–109; RESP 13–18; TEMP 97.5–97.9; O2SAT 91–98
[2024-06-21 06:16] LABS: INR 2.2 (0.9-1.15); Prothrombin Time 21.6 sec (9.3-11.8)
[2024-06-21 06:19] LABS: Basophils # (auto) 0.1 10 ^3/uL (0-0.2); Basophils % (auto) 0.4 % (0.0-2.0); Eosinophils # (auto) 0.1 10 ^3/uL (0-0.8); Eosinophils % (auto) 1.1 % (0.0-7.0); Hematocrit 50.6 % (36.0-46.0); Hemoglobin 17.2 g/dL (12.2-16.2); Lymphocytes # (auto) 1.6 10 ^3/uL (0.4-5.4); Lymphocytes % (auto) 13.1 % (10.0-50.0); Mean Corpuscular Hemoglobin 30.9 pg (28.0-32.0); Mean Corpuscular Hgb Conc. 33.9 g/dL (32.0-36.0); Mean Corpuscular Volume 91.2 fL (80.0-100.0); Monocytes # (auto) 1.4 10 ^3/uL (0-1.3); Monocytes % (auto) 11.7 % (0.0-12.0); Neutrophils # (auto) 8.9 10 ^3/uL (1.6-8.6); Neutrophils % (auto) 73.7 % (37.0-80.0); Nucleated Red Blood Cells % 0.2 %; Platelet Count (auto) 210 10^3/uL (140-450); Red Blood Cells 5.55 10^6/uL (4.0-5.20); Red Cell Distribution Width 14.2 % (11.8-14.3); White Blood Cell 12.1 10^3/uL (4.4-10.8)
[2024-06-21] MEDS: fentaNYL CITRATE 100 MCG/2 ML VL IV ONE (08:15)
[2024-06-21] MEDS: MIDAZOLAM HCL 2MG/2ML 2ml VIAL (1mg/ml) IV ONE (09:10)
[2024-06-21] MEDS: AMIODARONE HCL 200 MG TAB PO SCH (10:00)
--- NOTE | 2024-06-21 10:40 | ECG ---
[facility] Test Date: 2024-06-21 Test Time: 09:22:54 Pat Name: MOSES ROGERS Department: Room: 0215T A Gender: F Merchandise Flow Manager: JESSICA : 1950 Requested By: DIANA SMALLWOOD Order Number: [id number] Reading MD: Daniel Long Measurements Intervals [place] Rate: 105 P: 0 ME: 0 QRS: -3 QRSD: 106 T: 223 QT: 378 QTc: 499 Interpretive Statements Atrial fibrillation with rapid ventricular response with a competing junctional pacemaker Voltage criteria for left ventricular hypertrophy ST & T wave abnormality, consider inferolateral ischemia or digitalis effect Electronically Signed On 06-22-2024 20:51:56 PDT by Daniel Long Please click the below link to view image of tracing.
[2024-06-21] MEDS: METOPROLOL SUCCINATE XL 50 MG TAB PO SCH (11:08)
--- NOTE | 2024-06-21 13:06 | DVHPN2 ---
Progress Note - Dictate Date Seen: June 20, 2024 Medical Necessity Reason Pt with a Central, PICC or Fol: Yes The following are medically ne: Posada Catheter Reason for posada catheter: Strict I&O Subjective PT WITH ORG HEART DISEASE S/P OPEN HEART SURGERY S/P AVR HX AFIB ABLATION HTN HYPOTHROIDISM CACHEXIA STERNAL WIRE PAIN vital signs Vital Sign Date Time Temp Pulse Resp B/P (MAP) Pulse Ox O2 Delivery O2 Flow Rate FiO2 06/21/24 11:10 135/69 06/21/24 11:08 114 06/21/24 10:07 18 98 06/21/24 05:00 97.9 97.9 06/20/24 20:00 Room Air* 0 21 Total Intake and Output 06/20/24 06/20/24 06/21/24 15:00 23:00 07:00 Intake Total 374.2 ml 100 ml Output Total 550 ml 250 ml Balance -175.8 ml -150 ml medications Current Medications Medications Dose Ordered Sig/Robin Route Start Time Stop Time Status Last Admin Dose Admin Aspirin 81 mg DAILY PO 06/19/24 10:00 06/21/24 11:11 81 MG Furosemide 40 mg DAILY PO 06/19/24 10:00 06/21/24 11:10 40 MG Pantoprazole Sodium 40 mg DAILY IV 06/19/24 10:00 06/21/24 11:05 40 MG Levothyroxine Sodium 25 mcg QAM@0600 PO 06/19/24 06:00 06/21/24 05:35 25 MCG Warfarin Sodium -Hazardous Drug -DO NOT CRUSH OR ... PER PHARMACY PO 06/19/24 08:30 Ondansetron HCl 4 mg Q6HPRN PRN IV 06/19/24 13:30 06/20/24 19:50 4 MG Temazepam 15 mg HSPRN PRN PO 06/19/24 17:15 06/20/24 21:27 15 MG Metoprolol Succinate 100 mg DAILY PO 06/21/24 09:45 06/21/24 11:08 100 MG Amiodarone HCl 400 mg Q12HR PO 06/21/24 10:00 laboratory and microbiology Laboratory Tests 06/21/24 04:42 06/20/24 05:49 Test 06/20/24 05:49 Range/Units Serum Glucose 94 74-106 mg/dL Problem List ORG HEART DISEASE S/P OPEN HEART SURGERY S/P AVR HX AFIB ABLATION HTN HYPOTHROIDISM CACHEXIA STERNAL WIRE PAIN Assessment/Plan AMIODARONE CONT ANTICOAGULATION CARDIOVERSION IN AM Plan discussed with: Patient DIANA SMALLWOOD MD June 21, 2024 13:06
--- NOTE | 2024-06-21 13:08 | DVHPN2 ---
Progress Note - Dictate Date Seen: June 21, 2024 Medical Necessity Reason Pt with a Central, PICC or Fol: Yes The following are medically ne: Posada Catheter Reason for posada catheter: Strict I&O Subjective PT WITH ORG HEART DISEASE S/P OPEN HEART SURGERY S/P AVR HX AFIB ABLATION HTN HYPOTHROIDISM CACHEXIA STERNAL WIRE PAIN vital signs Vital Sign Date Time Temp Pulse Resp B/P (MAP) Pulse Ox O2 Delivery O2 Flow Rate FiO2 06/21/24 11:10 135/69 06/21/24 11:08 114 06/21/24 10:07 18 98 06/21/24 05:00 97.9 97.9 06/20/24 20:00 Room Air* 0 21 Total Intake and Output 06/20/24 06/20/24 06/21/24 15:00 23:00 07:00 Intake Total 374.2 ml 100 ml Output Total 550 ml 250 ml Balance -175.8 ml -150 ml medications Current Medications Medications Dose Ordered Sig/Robin Route Start Time Stop Time Status Last Admin Dose Admin Aspirin 81 mg DAILY PO 06/19/24 10:00 06/21/24 11:11 81 MG Furosemide 40 mg DAILY PO 06/19/24 10:00 06/21/24 11:10 40 MG Pantoprazole Sodium 40 mg DAILY IV 06/19/24 10:00 06/21/24 11:05 40 MG Levothyroxine Sodium 25 mcg QAM@0600 PO 06/19/24 06:00 06/21/24 05:35 25 MCG Warfarin Sodium -Hazardous Drug -DO NOT CRUSH OR ... PER PHARMACY PO 06/19/24 08:30 Ondansetron HCl 4 mg Q6HPRN PRN IV 06/19/24 13:30 06/20/24 19:50 4 MG Temazepam 15 mg HSPRN PRN PO 06/19/24 17:15 06/20/24 21:27 15 MG Metoprolol Succinate 100 mg DAILY PO 06/21/24 09:45 06/21/24 11:08 100 MG Amiodarone HCl 400 mg Q12HR PO 06/21/24 10:00 laboratory and microbiology Laboratory Tests 06/21/24 04:42 06/20/24 05:49 Test 06/20/24 05:49 Range/Units Serum Glucose 94 74-106 mg/dL Problem List ORG HEART DISEASE S/P OPEN HEART SURGERY S/P AVR HX AFIB ABLATION HTN HYPOTHROIDISM CACHEXIA STERNAL WIRE PAIN Assessment/Plan AMIODARONE CONT ANTICOAGULATION CARDIOVERSION IN AM S/P ATTEMPTED CARDIOVERSION CARDIOVERSION FAILED 2 SHOCKS PT WAS IN BRIEF SINUS RHYTHM SO CHAGE TO PO AMIODARONE TITRATE BETA ROMANA TO 100 MG DAILY MAY DC HOME FOLLOWUP IN 1 WEEK Plan discussed with: Patient Critical Care Time(min): 35 DIANA SMALLWOOD MD June 21, 2024 13:08
--- NOTE | 2024-06-21 13:12 | DVHOP2 ---
Operative Report PT WITH AFIB NOW FOR CARDIOVERSION CONSCIENTIOUS SEDATION PT WAS GIVEN 2 MG OF VESED 2 CHOCKS WERE DELIVERED 1. 100j BIPHASIC DIRECT SYNCH CURRENT 2. 200J SECOND SHOCK PT BRIEFLY IN SINUS RHYTHM BUT REVERTED BACK TO AFIB PROCEDURE CONCLUDED NON COMPLICATION DIANA SMALLWOOD MD June 21, 2024 13:12
--- NOTE | 2024-06-21 14:38 | ECG ---
[facility] Test Date: 2024-06-19 Test Time: 01:46:56 Pat Name: MOSES ROGERS Department: ED Room: 0215T A Gender: F Project Development Coordinator: dmei : 1950 Requested By: HERMELINDA DOUGLAS Order Number: [id number] Reading MD: Daniel Long Measurements Intervals [place] Rate: 110 P: 0 OR: 0 QRS: 46 QRSD: 106 T: 267 QT: 355 QTc: 481 Interpretive Statements Atrial fibrillation Probable LVH with secondary repol abnrm Electronically Signed On 06-22-2024 20:57:33 PDT by Daniel Long Please click the below link to view image of tracing.
--- NOTE | 2024-06-21 17:34 | DVHPN2 ---
Subjective She had a cardioversion this morning, it failed Still in afib Dr. Gustafson recommended to continue amiodarone and metoprolol Patient is refusing amiodarone, she is asking to be seen by Dr. Zamora for a second opinion Changes from previous H/P or p: Changes Eyes: No Pain, No Vision change, No Conjunctivae inflammation, No Eyelid inflammation, No Other, No Redness ENT: No Ear pain, No Ear discharge, No Nose pain, No Nose discharge, No Nose congestion, No Mouth pain, No Mouth swelling, No Throat pain, No Throat swelling, No Other Cardiovascular: Chest Pain, Palpitations; No Orthopnea, No Paroxysmal Noc. Dyspnea, No Edema, No Lt Headedness, No Other Respiratory: No Cough, No Dry; Shortness of breath; No SOB with excertion, No Wheezing, No Hemoptysis, No Pleuritic Pain, No Sputum, No Other Gastrointestinal: No Nausea, No Vomiting, No Abdominal Pain, No Diarrhea, No Constipation, No Melena, No Hematochezia, No Other Genitourinary: No Dysuria, No Frequency, No Incontinence, No Hematuria, No Retention, No Other Musculoskeletal: No other, No neck pain, No shoulder pain, No arm pain, No back pain, No hand pain, No leg pain, No foot pain Skin: No Rash, No Lesions, No Jaundice, No Bruising, No Other Objective Vitals Vital Signs Date Time Temp Pulse Resp B/P (MAP) Pulse Ox O2 Delivery O2 Flow Rate FiO2 06/21/24 13:00 97.6 72 16 115/74 (88) 94 97.6 06/21/24 08:00 Room Air* 0 21 Intake/Output Intake and Output 06/21/24 07:00 Intake Total 474.2 ml Output Total 800 ml Balance -325.8 ml Intake Oral 275 ml IV Total 199.2 ml Output Urine Total 800 ml General Appearance: Alert, Oriented X3, Cooperative, No acute distress Lungs: Clear to auscultation, Normal air movement Cardiovascular: Regular rate, Normal S1 Abdomen: Normal bowel sounds, Soft, No tenderness Extremities: No edema Medications Current Medications Medications Dose Ordered Sig/Robin Route Start Time Stop Time Status Last Admin Dose Admin Aspirin 81 mg DAILY PO 06/19/24 10:00 06/21/24 11:11 81 MG Furosemide 40 mg DAILY PO 06/19/24 10:00 06/21/24 11:10 40 MG Pantoprazole Sodium 40 mg DAILY IV 06/19/24 10:00 06/21/24 11:05 40 MG Levothyroxine Sodium 25 mcg QAM@0600 PO 06/19/24 06:00 06/21/24 05:35 25 MCG Warfarin Sodium -Hazardous Drug -DO NOT CRUSH OR ... PER PHARMACY PO 06/19/24 08:30 Ondansetron HCl 4 mg Q6HPRN PRN IV 06/19/24 13:30 06/20/24 19:50 4 MG Temazepam 15 mg HSPRN PRN PO 06/19/24 17:15 06/20/24 21:27 15 MG Metoprolol Succinate 100 mg DAILY PO 06/21/24 09:45 06/21/24 11:08 100 MG Amiodarone HCl 400 mg Q12HR PO 06/21/24 10:00 Laboratory Results Laboratory Tests 06/20/24 05:49 06/21/24 04:42 Coagulation Test 06/21/24 04:42 Prothrombin Time 21.6 sec (9.3-11.8) H Prothrombin Time INR 2.20 (0.9-1.15) H Urinalysis Test 06/19/24 04:56 Urine Color Colorless (Yellow) Urine Clarity Clear (Clear) Urine pH 5.5 (5.0-9.0) Urine Specific [place] 1.005 (1.001-1.035) Urine Protein Negative (Negative) Urine Ketones Negative (Negative) Urine Blood Negative /uL (Negative) Urine Nitrite Negative (Negative) Urine Bilirubin Negative (Negative) Urine Urobilinogen Normal mg/dL (Negative) Urine Leukocyte Esterase 1+ /uL (Negative) Urine RBC 1 /hpf (0 - 4) Urine Microscopic WBC 13 /HPF (0-5) H Urine Squamous Epithelial Cells None seen /hpf (<5) Urine Bacteria None seen /hpf (None Seen) Urine Hyaline Casts Few /lpf (0 - 2) Urine Glucose Normal mg/dL (Normal) Assessment/Plan Assessment/Plan Afib RVR Organic heart disease, 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 Zamora / Artem for a second opinion Coumadin per pharmacy Plan discussed with: Patient My Orders Orders - TIANA GRIFFIN MD Procedure Category Date Status Time * Cardiology Consult CONS 06/21/24 Transmitted 17:20 Basic Metabolic Panel LAB 06/22/24 Verified 04:00 Magnesium LAB 06/22/24 Verified 04:00 Date of Service: June 21, 2024 Billing Provider: TIANA GRIFFIN MD Common Visit Codes: [id number] INP/OBS CARE(HIGH) TIANA GRIFFIN MD June 21, 2024 17:34
[2024-06-21] MEDS: WARFARIN SODIUM 1 MG TAB PO ONE (22:16)
[2024-06-22 06:55] LABS: Anion Gap 15 (5-15); Carbon Dioxide 28 mmol/L (20-31)
[2024-06-22 06:58] LABS: INR 2.16 (0.9-1.15); Partial Thromboplastin Time 35.2 SEC (24.5-34.5); Prothrombin Time 21.2 sec (9.3-11.8)
[2024-06-22 07:01] LABS: Glucose 99 mg/dL (74-106)
[2024-06-22 07:06] LABS: Blood Urea Nitrogen 33 mg/dL (9-23); Chloride 92 mmol/L (98-107); Magnesium 1.2 mg/dL (1.6-2.6); Potassium 2.9 mmol/L (3.5-5.1); Sodium 135 mmol/L (136-145)
[2024-06-22 08:00] VITALS: PULSE 95
[2024-06-22 08:54] VITALS: BP 124/57; PULSE 113; RESP 18; TEMP 97.3; O2SAT 98
[2024-06-22 13:00] VITALS: BP 135/74; PULSE 66; RESP 18; TEMP 97.5; O2SAT 95
[2024-06-22] MEDS ORDERED: POTASSIUM CHL 20MEQ/100ML 100 ML IV ONE (13:15)
--- NOTE | 2024-06-22 15:27 | DVHPN2 ---
Subjective She is complaining of abdominal discomfort Potassium magnesium are low She is on amiodarone IV drip Creatinine is up to 1.6 Changes from previous H/P or p: Changes Eyes: No Pain, No Vision change, No Conjunctivae inflammation, No Eyelid inflammation, No Other, No Redness ENT: No Ear pain, No Ear discharge, No Nose pain, No Nose discharge, No Nose congestion, No Mouth pain, No Mouth swelling, No Throat pain, No Throat swelling, No Other Cardiovascular: Chest Pain, Palpitations; No Orthopnea, No Paroxysmal Noc. Dyspnea, No Edema, No Lt Headedness, No Other Respiratory: No Cough, No Dry; Shortness of breath; No SOB with excertion, No Wheezing, No Hemoptysis, No Pleuritic Pain, No Sputum, No Other Gastrointestinal: No Nausea, No Vomiting, No Abdominal Pain, No Diarrhea, No Constipation, No Melena, No Hematochezia, No Other Genitourinary: No Dysuria, No Frequency, No Incontinence, No Hematuria, No Retention, No Other Musculoskeletal: No other, No neck pain, No shoulder pain, No arm pain, No back pain, No hand pain, No leg pain, No foot pain Skin: No Rash, No Lesions, No Jaundice, No Bruising, No Other Objective Vitals Vital Signs Date Time Temp Pulse Resp B/P (MAP) Pulse Ox O2 Delivery O2 Flow Rate FiO2 06/22/24 13:00 97.5 66 18 135/74 (94) 95 97.5 06/22/24 08:00 Room Air* 0 21 Intake/Output Intake and Output 06/22/24 07:00 Intake Total 769.98 ml Output Total 725 ml Balance 44.98 ml Intake Oral 520 ml IV Total 249.98 ml Output Urine Total 725 ml General Appearance: Alert, Oriented X3, Cooperative, No acute distress Lungs: Clear to auscultation, Normal air movement Cardiovascular: Regular rate, Normal S1 Abdomen: Normal bowel sounds, Soft, No tenderness Extremities: No edema Medications Current Medications Medications Dose Ordered Sig/Robin Route Start Time Stop Time Status Last Admin Dose Admin Aspirin 81 mg DAILY PO 06/19/24 10:00 06/22/24 08:46 81 MG Furosemide 40 mg DAILY PO 06/19/24 10:00 06/22/24 08:46 40 MG Pantoprazole Sodium 40 mg DAILY IV 06/19/24 10:00 06/22/24 08:44 40 MG Levothyroxine Sodium 25 mcg QAM@0600 PO 06/19/24 06:00 06/22/24 05:31 25 MCG Warfarin Sodium -Hazardous Drug -DO NOT CRUSH OR ... PER PHARMACY PO 06/19/24 08:30 Ondansetron HCl 4 mg Q6HPRN PRN IV 06/19/24 13:30 06/20/24 19:50 4 MG Temazepam 15 mg HSPRN PRN PO 06/19/24 17:15 06/21/24 22:16 15 MG Metoprolol Succinate 100 mg DAILY PO 06/21/24 09:45 06/22/24 08:45 100 MG Amiodarone HCl 400 mg Q12HR PO 06/21/24 10:00 Magnesium Sulfate/ Dextrose 100 ml @ 100 mls/hr Q1HR IV 06/22/24 14:00 06/22/24 15:59 Laboratory Results Laboratory Tests 06/21/24 04:42 06/22/24 05:16 Chemistry Test 06/22/24 05:16 Calcium Level 10.0 mg/dL (8.7-10.4) Magnesium Level 1.2 mg/dL (1.6-2.6) L Coagulation Test 06/22/24 05:16 Prothrombin Time 21.2 sec (9.3-11.8) H Prothrombin Time INR 2.16 (0.9-1.15) H Activated Partial Thromboplast Time 35.2 SEC (24.5-34.5) H Urinalysis Test 06/19/24 04:56 Urine Color Colorless (Yellow) Urine Clarity Clear (Clear) Urine pH 5.5 (5.0-9.0) Urine Specific [place] 1.005 (1.001-1.035) Urine Protein Negative (Negative) Urine Ketones Negative (Negative) Urine Blood Negative /uL (Negative) Urine Nitrite Negative (Negative) Urine Bilirubin Negative (Negative) Urine Urobilinogen Normal mg/dL (Negative) Urine Leukocyte Esterase 1+ /uL (Negative) Urine RBC 1 /hpf (0 - 4) Urine Microscopic WBC 13 /HPF (0-5) H Urine Squamous Epithelial Cells None seen /hpf (<5) Urine Bacteria None seen /hpf (None Seen) Urine Hyaline Casts Few /lpf (0 - 2) Urine Glucose Normal mg/dL (Normal) Assessment/Plan Assessment/Plan Afib RVR Organic heart disease, 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 Zamora / Artem for a second opinion Coumadin per pharmacy 06/22/2024: Hypokalemia : Replace Hypomagnesemia : Replace Atrial fibrillation with rapid ventricular response: Amiodarone drip and beta blockers , metoprolol Cardiology consultation for 2nd opinion Dr. Mcgill Coumadin per pharmacy Plan discussed with: Patient My Orders Orders - TIANA GRIFFIN MD Procedure Category Date Status Time * Cardiology Consult CONS 06/21/24 Transmitted 17:20 Magnesium Sulfate PHA 06/22/24 In Process 1gm/100ml 14:00 Date of Service: June 22, 2024 Billing Provider: TIANA GRIFFIN MD Common Visit Codes: [id number] INP/OBS CARE(HIGH) TIANA GRIFFIN MD June 22, 2024 15:27
[2024-06-22] MEDS: POTASSIUM EFFERVESENT TAB 25 MEQ PO ONE (15:52)
--- NOTE | 2024-06-22 16:38 | DVHINCON2 ---
Date of service: June 22, 2024 History of Present Illness HPI Patient is a 73-year-old female who originally presented on June 18, 2024. She originally presented with palpitation and was found to have atrial fibrillation with RVR. Primary fountain vending mechanic (Dr Gustafson) started the patient on amiodarone and even performed cardioversion (on June 21, 2024). The cardioversion was unsuccessful. Second opinion cardiology consultation was requested by primary team. Patient is known to have valvular heart disease and had aortic valve replacement around 20 years ago. Does have old history of atrial fibrillation for which had atrial fibrillation ablation around 20 years ago. She has been kept on Coumadin for aortic valve replacement (mechanical valve). As per patient, she started feeling palpitation around few weeks back and went to her usual fountain vending mechanic. She was supposed to take amiodarone was not compliant with it (some stomach issue). As she had continued palpitation she decided to come to the hospital. Home Meds Reported Medications Warfarin Sodium (Warfarin Sodium) 1 Mg Tab, 1 TAB PO DAILY 04/24/23 Pregabalin (Lyrica) 50 Mg Cap, 50 MG PO BID, CAP 04/22/23 Temazepam (Temazepam) 30 Mg Cap, 30 MG PO QHSP PRN for FOR INSOMNIA, CAP 04/22/23 Biotin (SUPER BIOTIN) 5,000 Mcg Cap, 5000 MCG PO QAM for SUPPLEMENT 12/04/19 Oyster Shell Calcium (Calcium) 500 Mg Tab, 500 MG PO QPM for SUPPLEMENT 12/04/19 Esomeprazole Magnesium Trihydr (Nexium) 40 Mg Cap, 1 CAP PO QAM for GERD 12/04/19 Metoprolol Tartrate (Metoprolol Tartrate) 50 Mg Tab, 50 MG PO HS for HYPERTENSION 12/04/19 Simvastatin (Simvastatin) 40 Mg Tab, 40 MG PO QPM for HIGH CHOLESTEROL 12/04/19 Past Medical History Others Past medical history includes hypertension, hyperlipidemia, GERD, valvular heart disease and status post aortic valve replacement (mechanical valve)/moderate mitral regurgitation, paroxysmal AFib (status post AFib ablation in 2005), systolic heart failure, old spinal surgery, cachexia, thyroid problem, status post appendectomy and hysterectomy. Family History: No pertinent Hx Patient Family History: Cardiovascular disease G8 MOTHER Cerebrovascular accident (CVA) G8 MOTHER Chronic obstructive pulmonary disease G8 FATHER Smoker: No Hx (Negative) Alocohol: None Drugs: None Lives with: With family Review of Systems Constitutional: No symptom reported Pulmonary/Respiratory: Dyspnea Cardiovascular: Palpitations All Other Systems Fourteen point review of system was performed. Relevant findings as per above and as per HPI. Otherwise negative H&P Exam Vital Signs Vital Signs Date Time Temp Pulse Resp B/P (MAP) Pulse Ox O2 Delivery O2 Flow Rate FiO2 06/22/24 13:00 97.5 66 18 135/74 (94) 95 97.5 06/22/24 08:00 Room Air* 0 21 General Appeara: Well developed, Cachetic Head Exam: Normal inspection Eye Exam: bilateral eye PERRL Mouth: Normal Inspection Pulmonary/Respiratory: Rhonci Cardiovascular/Chest: Regular rate, Systolic murmur Peripheral Pulses: 2+ carotid (R), 2+ carotid (L), 2+ femoral (R), 2+ femoral (L), 2+ dorsalis pedis (R), 2+ dorsalis pedis (L), 2+ Radial (R), 2+ Radial (L) Abdominal Exam: Normal bowel sounds, Soft Neuro/Mental St: Alert, Oriented Appearance: Appropriate appearance Eye contact/ Speech: Cooperative Labs/Xrays Labs Test 06/22/24 05:16 06/21/24 04:42 06/20/24 05:49 06/19/24 05:00 Range/Units Prothrombin Time 21.2 H 9.3-11.8 sec Prothrombin Time INR 2.16 H 0.9-1.15 Activated Partial Thromboplast Time 35.2 H 24.5-34.5 SEC Sodium Level 135 L 136-145 mmol/L Potassium Level 2.9 L 3.5-5.1 mmol/L Chloride Level 92 L 98-107 mmol/L Carbon Dioxide Level 28 20-31 mmol/L Anion Gap 15 5-15 Blood Urea Nitrogen 33 #H 9-23 mg/dL Creatinine 1.65 #H 0.550-1.02 mg/dL Glomerular Filtration Rate Calc 32 >90 mL/min BUN/Creatinine Ratio 20.0 10.0-20.0 Serum Glucose 99 74-106 mg/dL Calcium Level 10.0 8.7-10.4 mg/dL Magnesium Level 1.2 L 1.6-2.6 mg/dL White Blood Count 12.1 H 4.4-10.8 10^3/uL Red Blood Count 5.55 H 4.0-5.20 10^6/uL Hemoglobin 17.2 H 12.2-16.2 g/dL Hematocrit 50.6 H 36.0-46.0 % Mean Corpuscular Volume 91.2 80.0-100.0 fL Mean Corpuscular Hemoglobin 30.9 28.0-32.0 pg Mean Corpuscular Hemoglobin Concent 33.9 32.0-36.0 g/dL Red Cell Distribution Width 14.2 11.8-14.3 % Platelet Count 210 140-450 10^3/uL Mean Platelet Volume 11.5 H 6.9-10.8 fL Neutrophils (%) (Auto) 73.7 37.0-80.0 % Lymphocytes (%) (Auto) 13.1 10.0-50.0 % Monocytes (%) (Auto) 11.7 0.0-12.0 % Eosinophils (%) (Auto) 1.1 0.0-7.0 % Basophils (%) (Auto) 0.4 0.0-2.0 % Neutrophils # (Auto) 8.9 H 1.6-8.6 10 ^3/uL Lymphocytes # (Auto) 1.6 0.4-5.4 10 ^3/uL Monocytes # (Auto) 1.4 H 0-1.3 10 ^3/uL Eosinophils # (Auto) 0.1 0-0.8 10 ^3/uL Basophils # (Auto) 0.1 0-0.2 10 ^3/uL Nucleated Red Blood Cells 0.2 % Thyroid Stimulating Hormone (TSH) 8.95 H 0.55-4.78 uIU/mL Hemoglobin A1c 5.1 <5.7 % A1C Total Bilirubin 1.2 H 0.2-1.0 mg/dL Aspartate Amino Transferase (AST) 14 13-40 U/L Alanine Aminotransferase (ALT) 15 7-40 U/L Alkaline Phosphatase 58 46-116 U/L Troponin I High Sensitivity 20 </=34 ng/L C-Reactive Protein High Sensitivity 0.20 <1.0 mg/dL Total Protein 7.6 5.7-8.2 g/dL Albumin 4.4 3.2-4.8 g/dL Triglycerides Level 124 < 150 mg/dL Cholesterol Level 261 H < 200 mg/dL LDL Cholesterol 190 H < 100 mg/dL HDL Cholesterol 58 40-59 mg/dL Free Thyroxine (T4) Calculated 1.67 0.89-1.76 ng/dL Free Triiodothyronine (T3) pg/mL 2.39 2.3-4.2 pg/mL Test 06/19/24 04:56 06/18/24 23:53 06/18/24 19:40 Range/Units Urine Color Colorless Yellow Urine Clarity Clear Clear Urine pH 5.5 5.0-9.0 Urine Specific [place] 1.005 1.001-1.035 Urine Protein Negative Negative Urine Ketones Negative Negative Urine Blood Negative Negative /uL Urine Nitrite Negative Negative Urine Bilirubin Negative Negative Urine Urobilinogen Normal Negative mg/dL Urine Leukocyte Esterase 1+ Negative /uL Urine RBC 1 0 - 4 /hpf Urine Microscopic WBC 13 H 0-5 /HPF Urine Squamous Epithelial Cells None seen <5 /hpf Urine Bacteria None seen None Seen /hpf Urine Hyaline Casts Few 0 - 2 /lpf Urine Glucose Normal Normal mg/dL Erythrocyte Sedimentation Rate 3 0-20 mm/hr B-Type Natriuretic Peptide 538.81 0-100 pg/mL Vitamin B12 Level 286 211-911 pg/mL Vitamin D 25-Hydroxy 48.2 30.0-100 ng/mL Folic Acid 16.69 >5.38 ng/mL Assessment/Plan Plan Patient is a 73-year-old female who originally presented on June 18, 2024. She originally presented with palpitation and was found to have atrial fibrillation with RVR. Primary fountain vending mechanic (Dr Gustafson) started the patient on amiodarone and even performed cardioversion (on June 21, 2024). The cardioversion was unsuccessful. Second opinion cardiology consultation was requested by primary team. Patient is known to have valvular heart disease and had aortic valve replacement around 20 years ago. Does have old history of atrial fibrillation for which had atrial fibrillation ablation around 20 years ago. She has been kept on Coumadin for aortic valve replacement (mechanical valve). As per patient, she started feeling palpitation around few weeks back and went to her usual fountain vending mechanic. She was supposed to take amiodarone was not compliant with it (some stomach issue). As she had continued palpitation she decided to come to the hospital. She has been on amiodarone drip for around 1 day prior to evaluation Not in acute distress and lying flat in bed. Not using accessory muscles of breathing. No JVD. Lungs are clear to auscultation. Cardiac (at the time of evaluation) is regular. Systolic murmur 3/6 in the apex is heard. Abdomen is soft. There was no mass/hepatomegaly. Bowel sound is positive. Extremities do not reveal edema. Past medical history includes hypertension, hyperlipidemia, GERD, valvular heart disease and status post aortic valve replacement (mechanical valve)/moderate mitral regurgitation, paroxysmal AFib (status post AFib ablation in 2005), systolic heart failure, old spinal surgery, cachexia, thyroid problem, status post appendectomy and hysterectomy. Echocardiogram of March 28, 2024 had reported ejection fraction of 45%, mild pulmonary hypertension, left atrial enlargement and moderate MR. Left heart catheterization of December 2019 revealed normal coronaries BNP: 538.81 Troponin (high sensitive): - - 27 - 25 - 20 TSH: 18.44 - 8.95 TSH: 1.67 (within normal limits) T3: 2.39 (within normal limits) Chest x-ray reported: Left basilar opacities may reflect atelectasis and/or developing infiltrates. Nonspecific interstitial prominence which can be seen with edema, reactive airway changes as well as atypical / viral infection. EKG on arrival revealed atrial fibrillation with RVR Tele revealed atrial fibrillation with RVR. At the time of evaluation the patient is in sinus rhythm Patient is a 73-year-old female who presented with atrial fibrillation. Did have AFib with RVR on presentation. Patient had unsuccessful cardioversion. Later the patient was kept on amiodarone drip and the patient went back to sinus rhythm. Does have baseline history of valvular heart disease and systolic heart failure. Had normal coronaries in the angiogram of 2019. Paroxysmal AFib Atrial fibrillation with RVR Valvular heart disease Systolic heart failure Nonischemic cardiomyopathy Status post mechanical aortic valve replacement Cardiac suggestion for management: Managed on telemetry Follow-up electrolytes and kidney function tests and correct abnormalities. Keep potassium above 4 and magnesium above 2 As the patient responded to IV amiodarone, continuation of amiodarone is suggested. Consider continuation of IV amiodarone for at least 24 more hours. You may consider starting oral loading (400 mg twice daily of amiodarone for around 2 weeks, followed by 200 mg daily). Outpatient referral for AFib abla tion can be justified. You may consider repeat echocardiogram to re-evaluate cardiac function/valves. Long-term continuation of anticoagulation is suggested. Guideline directed medical therapy for systolic heart failure is suggested. Thank you for consultation A total of 75 minutes was spent reviewing the patient record, examining the patient, making a diagnostic and therapeutic plan, discussing this plan with medical personnel, following up on diagnostic studies and following the patient for clinical stability excluding any and all procedures. At least 50% of this time was spent in direct, [id number] contact. Thank you for allowing me to participate in this patient's care. Further recommendations will depend on patient's clinical course. Please do not hesitate to contact me if you have any questions or concerns. This medical document was created using electronic medical record system with [employer] computerized dictation system. Although this document has been carefully reviewed, there may still be some phonetic and typographical errors. These areas are purely typographical due to the imperfection of the software programs, and do not reflect any compromise in the patient's medical care. Plan discussed with: Patient, Other (nurse) CORDELIA JOHNSON MD June 22, 2024 16:38
[2024-06-22 16:49] VITALS: BP 145/70; PULSE 70; RESP 18; TEMP 97.8; O2SAT 95
[2024-06-22] MEDS: WARFARIN SODIUM 2 MG TAB PO ONE (18:08)
[2024-06-22] MEDS: MAGNESIUM SULFATE 1GM/100ML 100 ML IV SCH (18:40)
[2024-06-22 20:00] VITALS: PULSE 63; PULSE 64; RESP 17; O2SAT 96
[2024-06-22 21:00] VITALS: BP 149/71; PULSE 63; RESP 17; TEMP 97.5; O2SAT 96
[2024-06-23 05:00] VITALS: BP 132/70; PULSE 66; RESP 17; TEMP 97.5; O2SAT 96
[2024-06-23 07:05] LABS: Basophils # (auto) 0 10 ^3/uL (0-0.2); Basophils % (auto) 0.4 % (0.0-2.0); Eosinophils # (auto) 0.2 10 ^3/uL (0-0.8); Eosinophils % (auto) 1.4 % (0.0-7.0); Hematocrit 48.7 % (36.0-46.0); Hemoglobin 16.5 g/dL (12.2-16.2); Lymphocytes # (auto) 1.3 10 ^3/uL (0.4-5.4); Lymphocytes % (auto) 11.2 % (10.0-50.0); Mean Corpuscular Hemoglobin 30.4 pg (28.0-32.0); Mean Corpuscular Hgb Conc. 33.9 g/dL (32.0-36.0); Mean Corpuscular Volume 89.5 fL (80.0-100.0); Monocytes # (auto) 1.6 10 ^3/uL (0-1.3); Monocytes % (auto) 13.7 % (0.0-12.0); Neutrophils # (auto) 8.6 10 ^3/uL (1.6-8.6); Neutrophils % (auto) 73.3 % (37.0-80.0); Nucleated Red Blood Cells % 0.4 %; Platelet Count (auto) 178 10^3/uL (140-450); Red Blood Cells 5.44 10^6/uL (4.0-5.20); Red Cell Distribution Width 14.8 % (11.8-14.3); White Blood Cell 11.8 10^3/uL (4.4-10.8)
[2024-06-23 07:17] LABS: Anion Gap 13 (5-15); Calcium 9.7 mg/dL (8.7-10.4); Carbon Dioxide 30 mmol/L (20-31)
[2024-06-23 07:22] LABS: BUN/Creatinine Ratio 22.8 (10.0-20.0)
[2024-06-23 07:24] LABS: INR 2.48 (0.9-1.15); Partial Thromboplastin Time 37.3 SEC (24.5-34.5)
[2024-06-23 07:25] LABS: Blood Urea Nitrogen 38 mg/dL (9-23); Chloride 90 mmol/L (98-107); Glucose 110 mg/dL (74-106); Sodium 133 mmol/L (136-145)
[2024-06-23 08:00] VITALS: BP 102/69; PULSE 64; PULSE 70; RESP 18; TEMP 97.7; O2SAT 95
[2024-06-23] MEDS: POTASSIUM EFFERVESENT TAB 25 MEQ PO ONE ×2 (09:35→17:55)
[2024-06-23] MEDS: POTASSIUM CHLORIDE 20 MEQ, LIDOCAINE 1% (LOCAL ANESTH.) 2 ML in SODIUM CHL 0.9% 100 ML IV ONE (10:00)
[2024-06-23] MEDS ORDERED: MAGNESIUM SULFATE 1GM/100ML 100 ML IV SCH ×2 (11:00→18:00)
[2024-06-23 12:00] VITALS: BP 152/61; PULSE 65; RESP 18; TEMP 97.5; O2SAT 93
--- NOTE | 2024-06-23 13:28 | DVHPN2 ---
Subjective She was having significant arrhythmia this morning including nonsustained VT and PVCs She denies chest pain She has some abdominal discomfort She is getting the IV amiodarone and also p.o. amiodarone which she will get the 1st dose this morning Her potassium was low at 3.0 and magnesium 2.0 Changes from previous H/P or p: Changes Eyes: No Pain, No Vision change, No Conjunctivae inflammation, No Eyelid inflammation, No Other, No Redness ENT: No Ear pain, No Ear discharge, No Nose pain, No Nose discharge, No Nose congestion, No Mouth pain, No Mouth swelling, No Throat pain, No Throat swelling, No Other Cardiovascular: Chest Pain, Palpitations; No Orthopnea, No Paroxysmal Noc. Dyspnea, No Edema, No Lt Headedness, No Other Respiratory: No Cough, No Dry; Shortness of breath; No SOB with excertion, No Wheezing, No Hemoptysis, No Pleuritic Pain, No Sputum, No Other Gastrointestinal: No Nausea, No Vomiting, No Abdominal Pain, No Diarrhea, No Constipation, No Melena, No Hematochezia, No Other Genitourinary: No Dysuria, No Frequency, No Incontinence, No Hematuria, No Retention, No Other Musculoskeletal: No other, No neck pain, No shoulder pain, No arm pain, No back pain, No hand pain, No leg pain, No foot pain Skin: No Rash, No Lesions, No Jaundice, No Bruising, No Other Objective Vitals Vital Signs Date Time Temp Pulse Resp B/P (MAP) Pulse Ox O2 Delivery O2 Flow Rate FiO2 06/23/24 09:20 79 154/55 06/23/24 08:00 Room Air* 0 21 06/23/24 08:00 97.7 18 95 97.7 Intake/Output Intake and Output 06/23/24 07:00 Intake Total 866.64 ml Output Total 1000 ml Balance -133.36 ml Intake Oral 500 ml IV Total 366.64 ml Output Urine Total 1000 ml General Appearance: Alert, Oriented X3, Cooperative, No acute distress Lungs: Clear to auscultation, Normal air movement Cardiovascular: Regular rate, Normal S1 Abdomen: Normal bowel sounds, Soft, No tenderness Extremities: No edema Medications Current Medications Medications Dose Ordered Sig/Robin Route Start Time Stop Time Status Last Admin Dose Admin Aspirin 81 mg DAILY PO 06/19/24 10:00 06/23/24 09:22 81 MG Furosemide 40 mg DAILY PO 06/19/24 10:00 06/23/24 09:19 40 MG Pantoprazole Sodium 40 mg DAILY IV 06/19/24 10:00 06/23/24 09:13 40 MG Levothyroxine Sodium 25 mcg QAM@0600 PO 06/19/24 06:00 06/23/24 05:37 25 MCG Warfarin Sodium -Hazardous Drug -DO NOT CRUSH OR ... PER PHARMACY PO 06/19/24 08:30 Ondansetron HCl 4 mg Q6HPRN PRN IV 06/19/24 13:30 06/23/24 09:42 4 MG Temazepam 15 mg HSPRN PRN PO 06/19/24 17:15 06/22/24 21:19 15 MG Metoprolol Succinate 100 mg DAILY PO 06/21/24 09:45 06/23/24 09:20 100 MG Amiodarone HCl 400 mg Q12HR PO 06/21/24 10:00 06/23/24 09:34 400 MG Laboratory Results Laboratory Tests 06/23/24 06:21 Chemistry Test 06/23/24 06:21 Calcium Level 9.7 mg/dL (8.7-10.4) Magnesium Level 2.0 mg/dL (1.6-2.6) Coagulation Test 06/23/24 06:21 Prothrombin Time 24.0 sec (9.3-11.8) H Prothrombin Time INR 2.48 (0.9-1.15) H Activated Partial Thromboplast Time 37.3 SEC (24.5-34.5) H Urinalysis Test 06/19/24 04:56 Urine Color Colorless (Yellow) Urine Clarity Clear (Clear) Urine pH 5.5 (5.0-9.0) Urine Specific [place] 1.005 (1.001-1.035) Urine Protein Negative (Negative) Urine Ketones Negative (Negative) Urine Blood Negative /uL (Negative) Urine Nitrite Negative (Negative) Urine Bilirubin Negative (Negative) Urine Urobilinogen Normal mg/dL (Negative) Urine Leukocyte Esterase 1+ /uL (Negative) Urine RBC 1 /hpf (0 - 4) Urine Microscopic WBC 13 /HPF (0-5) H Urine Squamous Epithelial Cells None seen /hpf (<5) Urine Bacteria None seen /hpf (None Seen) Urine Hyaline Casts Few /lpf (0 - 2) Urine Glucose Normal mg/dL (Normal) Assessment/Plan Assessment/Plan Afib RVR Organic heart disease, 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 Zamora / [facility] for a second opinion Coumadin per pharmacy 06/22/2024: Hypokalemia : Replace Hypomagnesemia : Replace Atrial fibrillation with rapid ventricular response: Amiodarone drip and beta blockers , metoprolol Cardiology consultation for 2nd opinion Dr. Mcgill Coumadin per pharmacy 06/23/24: Continue IV and p.o. amiodarone Replace potassium and magnesium as needed Cardiology is following Repeat EKG showed inverted T-waves after she was having significant arrhythmia and PVCs Cardiology is aware of the EKG changes, recommended to continue replace any electrolytes and monitor on telemetry The patient is very hesitant about taking the p.o. amiodarone and therefore we will continue the IV amiodarone for now in addition to the p.o. Discontinue the Lasix Coumadin per pharmacy protocol Bolus NS 250 mL Monitor her kidney function Nephrology consult Plan discussed with: Patient My Orders Orders - TIANA GRIFFIN MD Procedure Category Date Status Time Electrocardigram EKG 06/23/24 Logged 10:11 Date of Service: June 23, 2024 Billing Provider: TIANA GRIFFIN MD Common Visit Codes: [id number] INP/OBS CARE(HIGH) TIANA GRIFFIN MD June 23, 2024 13:28
--- NOTE | 2024-06-23 13:50 | DVHINCON2 ---
Date of service: June 23, [address] Flores Reason for Consultation RORY History of Present Illness 73 Y/O F with history of aortic valve replacement on Coumadin, atrial fibrillation s/p ablation, and hypothyroidism presented with chief complaint of palpitations and was found to be in Afib with RVR, she was started on amiodarone and had unsuccessful cardioversion. gfr has been gradually worsening. she is on lasix. nephrology consulted for RORY Past Medical History atrial fibrillation, and hypothyroidism Past Surgical History aortic valve replacement s/p ablation Allergies: Coded Allergies: Latex (Verified Allergy, Unknown, 06/18/24) Uncoded Allergies: DAIRY (Allergy, Unknown, 04/22/23) TAPE (Allergy, Unknown, 12/16/19) Home Meds Reported Medications Warfarin Sodium (Warfarin Sodium) 1 Mg Tab, 1 TAB PO DAILY 04/24/23 Pregabalin (Lyrica) 50 Mg Cap, 50 MG PO BID, CAP 04/22/23 Temazepam (Temazepam) 30 Mg Cap, 30 MG PO QHSP PRN for FOR INSOMNIA, CAP 04/22/23 Biotin (SUPER BIOTIN) 5,000 Mcg Cap, 5000 MCG PO QAM for SUPPLEMENT 12/04/19 Oyster Shell Calcium (Calcium) 500 Mg Tab, 500 MG PO QPM for SUPPLEMENT 12/04/19 Esomeprazole Magnesium Trihydr (Nexium) 40 Mg Cap, 1 CAP PO QAM for GERD 12/04/19 Metoprolol Tartrate (Metoprolol Tartrate) 50 Mg Tab, 50 MG PO HS for HYPERTENSION 12/04/19 Simvastatin (Simvastatin) 40 Mg Tab, 40 MG PO QPM for HIGH CHOLESTEROL 12/04/19 Current Medications Current Medications Medications (Trade) Dose Ordered Sig/Robin Route PRN Reason Start Time Stop Time Status Last Admin Magnesium Sulfate/ Dextrose 100 ml @ 100 mls/hr Q1HR IV 06/23/24 11:00 06/23/24 12:59 DC Family History: Cardiovascular disease G8 MOTHER Cerebrovascular accident (CVA) G8 MOTHER Chronic obstructive pulmonary disease G8 FATHER Review of Systems as per HPI all other symptoms reviewed and are negative. H&P Exam Vital Signs/I&O Vital Sign Date Time Temp Pulse Resp B/P (MAP) Pulse Ox O2 Delivery O2 Flow Rate FiO2 06/23/24 09:20 79 154/55 06/23/24 08:00 Room Air* 0 21 06/23/24 08:00 97.7 18 95 97.7 Intake and Output 06/22/24 06/23/24 19:00 07:00 Intake Total 200 ml 666.64 ml Output Total 500 ml 500 ml Balance -300 ml 166.64 ml Intake Oral 200 ml 300 ml IV Total 366.64 ml Output Urine Total 500 ml 500 ml Physical Exam gen: cachectic HEENT: NC,AT Lungs: CTA b/l Cardiac:RRR, no murmur Abd: soft, no tenderness Ext: no edema Neuro: no focal deficits Labs/Diagnostic Data Labs/Diagnostic Data Laboratory Tests Test 06/23/24 06:21 06/22/24 05:16 06/21/24 04:42 06/20/24 05:49 Range/Units White Blood Count 11.8 H 12.1 H 11.7 H 4.4-10.8 10^3/uL Red Blood Count 5.44 H 5.55 H 5.36 H 4.0-5.20 10^6/uL Hemoglobin 16.5 H 17.2 H 16.3 H 12.2-16.2 g/dL Hematocrit 48.7 H 50.6 H 48.5 H 36.0-46.0 % Mean Corpuscular Volume 89.5 91.2 90.4 80.0-100.0 fL Mean Corpuscular Hemoglobin 30.4 30.9 30.4 28.0-32.0 pg Mean Corpuscular Hemoglobin Concent 33.9 33.9 33.7 32.0-36.0 g/dL Red Cell Distribution Width 14.8 H 14.2 14.8 H 11.8-14.3 % Platelet Count 178 210 199 140-450 10^3/uL Mean Platelet Volume 11.3 H 11.5 H 11.1 H 6.9-10.8 fL Neutrophils (%) (Auto) 73.3 73.7 74.9 37.0-80.0 % Lymphocytes (%) (Auto) 11.2 13.1 11.8 10.0-50.0 % Monocytes (%) (Auto) 13.7 H 11.7 11.5 0.0-12.0 % Eosinophils (%) (Auto) 1.4 1.1 1.2 0.0-7.0 % Basophils (%) (Auto) 0.4 0.4 0.6 0.0-2.0 % Neutrophils # (Auto) 8.6 8.9 H 8.8 H 1.6-8.6 10 ^3/uL Lymphocytes # (Auto) 1.3 1.6 1.4 0.4-5.4 10 ^3/uL Monocytes # (Auto) 1.6 H 1.4 H 1.3 0-1.3 10 ^3/uL Eosinophils # (Auto) 0.2 0.1 0.1 0-0.8 10 ^3/uL Basophils # (Auto) 0 0.1 0.1 0-0.2 10 ^3/uL Nucleated Red Blood Cells 0.4 0.2 0.1 % Prothrombin Time 24.0 H 21.2 H 21.6 H 17.1 H 9.3-11.8 sec Prothrombin Time INR 2.48 H 2.16 H 2.20 H 1.70 H 0.9-1.15 Activated Partial Thromboplast Time 37.3 H 35.2 H 31.5 24.5-34.5 SEC Sodium Level 133 L 135 L 136 136-145 mmol/L Potassium Level 3.0 L 2.9 L 3.3 L 3.5-5.1 mmol/L Chloride Level 90 L 92 L 98 98-107 mmol/L Carbon Dioxide Level 30 28 24 20-31 mmol/L Anion Gap 13 15 14 5-15 Blood Urea Nitrogen 38 H 33 #H 18 9-23 mg/dL Creatinine 1.67 H 1.65 #H 1.18 H 0.550-1.02 mg/dL Glomerular Filtration Rate Calc 32 32 48 >90 mL/min BUN/Creatinine Ratio 22.8 H 20.0 15.3 10.0-20.0 Serum Glucose 110 H 99 94 74-106 mg/dL Calcium Level 9.7 10.0 9.0 8.7-10.4 mg/dL Magnesium Level 2.0 1.2 L 1.1 L 1.6-2.6 mg/dL Thyroid Stimulating Hormone (TSH) 8.95 H 0.55-4.78 uIU/mL Test 06/19/24 05:00 06/19/24 04:56 06/19/24 03:04 06/19/24 00:24 Range/Units White Blood Count 11.5 H 4.4-10.8 10^3/uL Red Blood Count 5.22 H 4.0-5.20 10^6/uL Hemoglobin 16.2 12.2-16.2 g/dL Hematocrit 47.7 #H 36.0-46.0 % Mean Corpuscular Volume 91.4 80.0-100.0 fL Mean Corpuscular Hemoglobin 31.0 28.0-32.0 pg Mean Corpuscular Hemoglobin Concent 33.9 32.0-36.0 g/dL Red Cell Distribution Width 14.9 H 11.8-14.3 % Platelet Count 189 140-450 10^3/uL Mean Platelet Volume 10.7 6.9-10.8 fL Neutrophils (%) (Auto) 77.7 37.0-80.0 % Lymphocytes (%) (Auto) 10.9 10.0-50.0 % Monocytes (%) (Auto) 9.9 0.0-12.0 % Eosinophils (%) (Auto) 0.9 0.0-7.0 % Basophils (%) (Auto) 0.6 0.0-2.0 % Neutrophils # (Auto) 8.9 H 1.6-8.6 10 ^3/uL Lymphocytes # (Auto) 1.2 0.4-5.4 10 ^3/uL Monocytes # (Auto) 1.1 0-1.3 10 ^3/uL Eosinophils # (Auto) 0.1 0-0.8 10 ^3/uL Basophils # (Auto) 0.1 0-0.2 10 ^3/uL Nucleated Red Blood Cells 0.1 % Sodium Level 137 136-145 mmol/L Potassium Level 3.5 3.5-5.1 mmol/L Chloride Level 102 98-107 mmol/L Carbon Dioxide Level 21 20-31 mmol/L Anion Gap 14 5-15 Blood Urea Nitrogen 13 9-23 mg/dL Creatinine 1.02 0.550-1.02 mg/dL Glomerular Filtration Rate Calc 58 >90 mL/min BUN/Creatinine Ratio 12.7 10.0-20.0 Serum Glucose 107 H 74-106 mg/dL Hemoglobin A1c 5.1 <5.7 % A1C Calcium Level 9.8 8.7-10.4 mg/dL Total Bilirubin 1.2 H 0.2-1.0 mg/dL Aspartate Amino Transferase (AST) 14 13-40 U/L Alanine Aminotransferase (ALT) 15 7-40 U/L Alkaline Phosphatase 58 46-116 U/L Troponin I High Sensitivity 20 25 27 </=34 ng/L C-Reactive Protein High Sensitivity 0.20 <1.0 mg/dL Total Protein 7.6 5.7-8.2 g/dL Albumin 4.4 3.2-4.8 g/dL Triglycerides Level 124 < 150 mg/dL Cholesterol Level 261 H < 200 mg/dL LDL Cholesterol 190 H < 100 mg/dL HDL Cholesterol 58 40-59 mg/dL Free Thyroxine (T4) Calculated 1.67 0.89-1.76 ng/dL Free Triiodothyronine (T3) pg/mL 2.39 2.3-4.2 pg/mL Urine Color Colorless Yellow Urine Clarity Clear Clear Urine pH 5.5 5.0-9.0 Urine Specific [place] 1.005 1.001-1.035 Urine Protein Negative Negative Urine Ketones Negative Negative Urine Blood Negative Negative /uL Urine Nitrite Negative Negative Urine Bilirubin Negative Negative Urine Urobilinogen Normal Negative mg/dL Urine Leukocyte Esterase 1+ Negative /uL Urine RBC 1 0 - 4 /hpf Urine Microscopic WBC 13 H 0-5 /HPF Urine Squamous Epithelial Cells None seen <5 /hpf Urine Bacteria None seen None Seen /hpf Urine Hyaline Casts Few 0 - 2 /lpf Urine Glucose Normal Normal mg/dL Prothrombin Time 12.2 H 9.3-11.8 sec Prothrombin Time INR 1.17 H 0.9-1.15 Activated Partial Thromboplast Time 28.2 24.5-34.5 SEC Test 06/18/24 23:53 06/18/24 20:46 06/18/24 19:40 Range/Units Erythrocyte Sedimentation Rate 3 0-20 mm/hr Troponin I High Sensitivity 27 21 </=34 ng/L C-Reactive Protein High Sensitivity 0.17 <1.0 mg/dL Thyroid Stimulating Hormone (TSH) 18.44 H 0.55-4.78 uIU/mL White Blood Count 10.8 4.4-10.8 10^3/uL Red Blood Count 4.53 4.0-5.20 10^6/uL Hemoglobin 14.5 12.2-16.2 g/dL Hematocrit 41.8 36.0-46.0 % Mean Corpuscular Volume 92.2 80.0-100.0 fL Mean Corpuscular Hemoglobin 31.9 28.0-32.0 pg Mean Corpuscular Hemoglobin Concent 34.6 32.0-36.0 g/dL Red Cell Distribution Width 14.7 H 11.8-14.3 % Platelet Count 179 140-450 10^3/uL Mean Platelet Volume 10.5 6.9-10.8 fL Neutrophils (%) (Auto) 73.4 37.0-80.0 % Lymphocytes (%) (Auto) 12.8 10.0-50.0 % Monocytes (%) (Auto) 10.6 0.0-12.0 % Eosinophils (%) (Auto) 2.2 0.0-7.0 % Basophils (%) (Auto) 1.0 0.0-2.0 % Neutrophils # (Auto) 7.9 1.6-8.6 10 ^3/uL Lymphocytes # (Auto) 1.4 0.4-5.4 10 ^3/uL Monocytes # (Auto) 1.1 0-1.3 10 ^3/uL Eosinophils # (Auto) 0.2 0-0.8 10 ^3/uL Basophils # (Auto) 0.1 0-0.2 10 ^3/uL Nucleated Red Blood Cells 0.1 % Prothrombin Time 13.1 H 9.3-11.8 sec Prothrombin Time INR 1.26 H 0.9-1.15 Activated Partial Thromboplast Time 28.3 24.5-34.5 SEC Sodium Level 137 136-145 mmol/L Potassium Level 3.8 3.5-5.1 mmol/L Chloride Level 104 98-107 mmol/L Carbon Dioxide Level 23 20-31 mmol/L Anion Gap 10 5-15 Blood Urea Nitrogen 19 9-23 mg/dL Creatinine 1.05 H 0.550-1.02 mg/dL Glomerular Filtration Rate Calc 56 >90 mL/min BUN/Creatinine Ratio 18.1 10.0-20.0 Serum Glucose 119 H 74-106 mg/dL Calcium Level 9.1 8.7-10.4 mg/dL Total Bilirubin 1.0 0.2-1.0 mg/dL Aspartate Amino Transferase (AST) 12 L 13-40 U/L Alanine Aminotransferase (ALT) 16 7-40 U/L Alkaline Phosphatase 54 46-116 U/L B-Type Natriuretic Peptide 538.81 0-100 pg/mL Total Protein 6.5 5.7-8.2 g/dL Albumin 3.8 3.2-4.8 g/dL Vitamin B12 Level 286 211-911 pg/mL Vitamin D 25-Hydroxy 48.2 30.0-100 ng/mL Folic Acid 16.69 >5.38 ng/mL Assessment Assessment: RORY, pre-renal from poor po intake and diarrhea. + Hemodynamic changes from Afib with RVR atrial fibrillation with RVR Hypokalemia Hypomagnesemia, resolved Diarrhea aortic valve replacement on Coumadin hypothyroidism Plan: Hold Lasix agree with NS 250 cc bolus supplement KCl as needed continue Metoprolol on Amiodarone daily BMP Strict I&Os Plan discussed with: Patient ANTONIO WEST MD June 23, 2024 13:50
[2024-06-23 16:00] VITALS: BP 139/77; PULSE 67; RESP 18; TEMP 97.9; O2SAT 94
[2024-06-23] MEDS: SODIUM CHLORIDE 0.9% 250 ML IV ONE (17:54)
[2024-06-23] MEDS: WARFARIN SODIUM 2 MG TAB PO ONE (18:49)
[2024-06-23 20:00] VITALS: PULSE 66; PULSE 70; RESP 18; O2SAT 96
[2024-06-23] MEDS: MAGNESIUM SULFATE 1GM/100ML 100 ML IV SCH (20:09)
[2024-06-23 21:00] VITALS: BP 102/58; PULSE 66; RESP 19; TEMP 97.7; O2SAT 96
[2024-06-23] MEDS: MAGNESIUM OXIDE 400 MG TAB PO SCH (21:24)
[2024-06-24] VITALS (7 sets, daily range): BP systolic 98–115; BP diastolic 50–61; PULSE 64–73; RESP 16–96; TEMP 97.1–97.9; O2SAT 19–100
[2024-06-24 06:46] LABS: INR 2.67 (0.9-1.15); Partial Thromboplastin Time 39.7 SEC (24.5-34.5); Prothrombin Time 25.7 sec (9.3-11.8)
[2024-06-24 06:47] LABS: Albumin 3.8 g/dL (3.2-4.8); Alkaline Phosphatase 59 U/L (46-116); Anion Gap 9 (5-15); Aspartate Aminotransferase 17 U/L (13-40); BUN/Creatinine Ratio 22.9 (10.0-20.0); Calcium 9.5 mg/dL (8.7-10.4); Glucose 104 mg/dL (74-106); Total Protein 6.6 g/dL (5.7-8.2)
[2024-06-24 06:48] LABS: Alanine Aminotransferase < 9 U/L (7-40); Blood Urea Nitrogen 33 mg/dL (9-23); Carbon Dioxide 32 mmol/L (20-31); Chloride 92 mmol/L (98-107); Magnesium 2.7 mg/dL (1.6-2.6); Potassium 3.1 mmol/L (3.5-5.1); Sodium 133 mmol/L (136-145)
[2024-06-24 06:55] LABS: Basophils # (auto) 0.1 10 ^3/uL (0-0.2); Basophils % (auto) 0.6 % (0.0-2.0); Eosinophils # (auto) 0.2 10 ^3/uL (0-0.8); Eosinophils % (auto) 1.6 % (0.0-7.0); Hematocrit 45.6 % (36.0-46.0); Hemoglobin 15.6 g/dL (12.2-16.2); Lymphocytes # (auto) 1.1 10 ^3/uL (0.4-5.4); Lymphocytes % (auto) 10.2 % (10.0-50.0); Mean Corpuscular Hemoglobin 30.7 pg (28.0-32.0); Mean Corpuscular Hgb Conc. 34.2 g/dL (32.0-36.0); Mean Corpuscular Volume 89.8 fL (80.0-100.0); Monocytes # (auto) 1.2 10 ^3/uL (0-1.3); Monocytes % (auto) 10.7 % (0.0-12.0); Neutrophils # (auto) 8.2 10 ^3/uL (1.6-8.6); Neutrophils % (auto) 76.9 % (37.0-80.0); Nucleated Red Blood Cells % 0.1 %; Platelet Count (auto) 177 10^3/uL (140-450); Red Blood Cells 5.08 10^6/uL (4.0-5.20); Red Cell Distribution Width 14.4 % (11.8-14.3); White Blood Cell 10.7 10^3/uL (4.4-10.8)
[2024-06-24 08:19] LABS: Bilirubin, Total 0.6 mg/dL (0.2-1.0)
--- NOTE | 2024-06-24 10:55 | DVHPN2 ---
Progress Note Date Seen: June 24, 2024 Medical Necessity Reason Pt with a Central, PICC or Fol: No Subjective Patient reports: No new complaints Review of Systems: HEENT:Normal, CVS:Normal, RESPIRATORY:Normal, GI:Normal, :Normal, MSK:Normal, NEURO:Normal Objective vital signs Vital Sign Date Time Temp Pulse Resp B/P (MAP) Pulse Ox O2 Delivery O2 Flow Rate FiO2 06/24/24 08:38 97.4 69 18 104/50 (68) 94 97.4 06/24/24 08:10 Room Air* 0 21 Total Intake and Output 06/23/24 06/23/24 06/24/24 15:00 23:00 07:00 Intake Total 312 ml 988 ml 650 ml Output Total 300 ml 400 ml Balance 312 ml 688 ml 250 ml medications Current Medications Medications Dose Ordered Sig/Robin Route Start Time Stop Time Status Last Admin Dose Admin Aspirin 81 mg DAILY PO 06/19/24 10:00 06/23/24 09:22 81 MG Pantoprazole Sodium 40 mg DAILY IV 06/19/24 10:00 06/23/24 09:13 40 MG Levothyroxine Sodium 25 mcg QAM@0600 PO 06/19/24 06:00 06/24/24 06:14 25 MCG Warfarin Sodium -Hazardous Drug -DO NOT CRUSH OR ... PER PHARMACY PO 06/19/24 08:30 Ondansetron HCl 4 mg Q6HPRN PRN IV 06/19/24 13:30 06/23/24 09:42 4 MG Temazepam 15 mg HSPRN PRN PO 06/19/24 17:15 06/23/24 21:23 15 MG Metoprolol Succinate 100 mg DAILY PO 06/21/24 09:45 06/23/24 09:20 100 MG Amiodarone HCl 400 mg Q12HR PO 06/21/24 10:00 06/23/24 09:34 400 MG Magnesium Sulfate/ Dextrose 100 ml @ 100 mls/hr Q1HR IV 06/23/24 11:00 06/23/24 12:59 Cancel Magnesium Oxide 400 mg BID PO 06/23/24 22:00 06/23/24 21:24 400 MG Examination: GENERAL:Normal, HEENT:Normal, NECK:Normal, LUNGS:Normal, CVS:Normal, CVS:Abnormal (click), ABDOMEN:Normal, MSK:Normal, SKIN:Normal, NEURO:Normal, :Normal laboratory and microbiology Laboratory Tests 06/24/24 05:18 Test 06/24/24 05:18 Range/Units Serum Glucose 104 74-106 mg/dL Problem List/Assessment/Plan Problem List/Assessment/Plan #1 a fib with rvr s/p ablation: dc iv amiod, coumadin, s/p cardioversion #2 s/p avr: on coumadin #3 hypothyroidism - uncontrolled: repeat tsh, levothyroxine #4 hyperlipidemia #5 gerd #6 hypokalemia: replace #7 acute renal failure ?vasomotor nephropathy: improving advance care planning- full code for now- time spent 21 mins Plan discussed with: Patient, Spouse My Orders My Orders Orders - MONICA ALICEA MD Procedure Category Date Status Time Pantoprazole Tablet PHA 06/25/24 Transmitted (Protonix Tablet) 06:00 Discontinue Chowdhury IRISH 06/24/24 In Process Catheter 10:36 Pt Request For Service PT 06/24/24 Logged 10:36 Potassium Er Tablet PHA 06/24/24 Transmitted (Klor-Con Tablet) 10:45 Basic Metabolic Panel LAB 06/25/24 Verified 06:00 Magnesium LAB 06/25/24 Verified 05:00 Date of Service: June 24, 2024 Billing Provider: MONICA ALICEA MD Common Visit Codes: [id number] INP/OBS CARE(HIGH) MONICA ALICEA MD June 24, 2024 10:55
[2024-06-24] MEDS: POTASSIUM CHL 20 Meq TABLET PO ONE (11:15)
--- NOTE | 2024-06-24 13:57 | DVHPN2 ---
Progress Note - Dictate Date Seen: June 23, 2024 Medical Necessity Reason Pt with a Central, PICC or Fol: No Subjective PT WITH ORG HEART DISEASE S/P OPEN HEART SURGERY S/P AVR HX AFIB ABLATION HTN HYPOTHROIDISM [employer] PA[employer] vital signs Vital Sign Date Time Temp Pulse Resp B/P (MAP) Pulse Ox O2 Delivery O2 Flow Rate FiO2 06/24/24 11:01 70 152/89 06/24/24 08:38 97.4 18 94 97.4 06/24/24 08:10 Room Air* 0 21 Total Intake and Output 06/23/24 06/23/24 06/24/24 15:00 23:00 07:00 Intake Total 312 ml 988 ml 650 ml Output Total 300 ml 400 ml Balance 312 ml 688 ml 250 ml medications Current Medications Medications Dose Ordered Sig/Robin Route Start Time Stop Time Status Last Admin Dose Admin Aspirin 81 mg DAILY PO 06/19/24 10:00 06/24/24 11:00 81 MG Levothyroxine Sodium 25 mcg QAM@0600 PO 06/19/24 06:00 06/24/24 06:14 25 MCG Warfarin Sodium -Hazardous Drug -DO NOT CRUSH OR ... PER PHARMACY PO 06/19/24 08:30 Ondansetron HCl 4 mg Q6HPRN PRN IV 06/19/24 13:30 06/23/24 09:42 4 MG Temazepam 15 mg HSPRN PRN PO 06/19/24 17:15 06/23/24 21:23 15 MG Metoprolol Succinate 100 mg DAILY PO 06/21/24 09:45 06/24/24 11:01 100 MG Magnesium Sulfate/ Dextrose 100 ml @ 100 mls/hr Q1HR IV 06/23/24 11:00 06/23/24 12:59 Cancel Magnesium Oxide 400 mg BID PO 06/23/24 22:00 06/23/24 21:24 400 MG Pantoprazole Sodium 40 mg DAILY@0600 PO 06/25/24 06:00 laboratory and microbiology Laboratory Tests 06/24/24 05:18 Test 06/24/24 05:18 Range/Units Serum Glucose 104 74-106 mg/dL Problem List ORG HEART DISEASE S/P OPEN HEART SURGERY S/P AVR HX AFIB ABLATION HTN HYPOTHROIDISM [employer] Assessment/Plan AMIODARONE CONT ANTICOAGULATION CARDIOVERSION IN AM S/P ATTEMPTED CARDIOVERSION CARDIOVERSION FAILED 2 SHOCKS PT WAS IN BRIEF SINUS RHYTHM SO CHAGE TO PO AMIODARONE TITRATE BETA ROMANA TO 100 MG DAILY JUNE DC HOME FOLLOWUP IN 1 WEEK NO CONVERTED TO SINUS RHYTHM DC AMIODARONE TAMBACOR 50 MG PO BID CONT METOPROLOL Plan discussed with: Patient, Spouse DIANA SMALLWOOD MD June 24, 2024 13:57
[2024-06-24] MEDS ORDERED: FLE50T PO (14:12)
--- NOTE | 2024-06-24 14:53 | DVHPN2 ---
Progress Note - Dictate Date Seen: June 24, 2024 Medical Necessity Reason Pt with a Central, PICC or Fol: No Subjective no new symptoms vital signs Vital Sign Date Time Temp Pulse Resp B/P (MAP) Pulse Ox O2 Delivery O2 Flow Rate FiO2 06/24/24 13:00 97.1 69 18 109/59 (76) 100 97.1 06/24/24 08:10 Room Air* 0 21 Total Intake and Output 06/23/24 06/23/24 06/24/24 15:00 23:00 07:00 Intake Total 312 ml 988 ml 650 ml Output Total 300 ml 400 ml Balance 312 ml 688 ml 250 ml medications Current Medications Medications Dose Ordered Sig/Robin Route Start Time Stop Time Status Last Admin Dose Admin Aspirin 81 mg DAILY PO 06/19/24 10:00 06/24/24 11:00 81 MG Levothyroxine Sodium 25 mcg QAM@0600 PO 06/19/24 06:00 06/24/24 06:14 25 MCG Warfarin Sodium -Hazardous Drug -DO NOT CRUSH OR ... PER PHARMACY PO 06/19/24 08:30 Ondansetron HCl 4 mg Q6HPRN PRN IV 06/19/24 13:30 06/23/24 09:42 4 MG Temazepam 15 mg HSPRN PRN PO 06/19/24 17:15 06/23/24 21:23 15 MG Metoprolol Succinate 100 mg DAILY PO 06/21/24 09:45 06/24/24 11:01 100 MG Magnesium Sulfate/ Dextrose 100 ml @ 100 mls/hr Q1HR IV 06/23/24 11:00 06/23/24 12:59 Cancel Magnesium Oxide 400 mg BID PO 06/23/24 22:00 06/23/24 21:24 400 MG Pantoprazole Sodium 40 mg DAILY@0600 PO 06/25/24 06:00 objective gen: cachectic HEENT: NC,AT Lungs: CTA b/l Cardiac:RRR, no murmur Abd: soft, no tenderness Ext: no edema Neuro: no focal deficits laboratory and microbiology Laboratory Tests 06/24/24 05:18 Test 06/24/24 05:18 Range/Units Serum Glucose 104 74-106 mg/dL Assessment/Plan Assessment: RORY, pre-renal from poor po intake and diarrhea. + Hemodynamic changes from Afib with RVR atrial fibrillation with RVR Chronic systolic CHF (EF: 45 %) Hypokalemia Hypomagnesemia, resolved Diarrhea aortic valve replacement on Coumadin hypothyroidism Plan: GFR improved Continue to hold Lasix s/p NS 250 cc bolus yesterday supplement KCl as needed continue Metoprolol on Amiodarone daily BMP Strict I&Os Plan discussed with: Patient ANTONIO WEST MD June 24, 2024 14:53
[2024-06-24] MEDS: WARFARIN SODIUM 1 MG TAB PO ONE (17:39)
--- NOTE | 2024-06-24 19:38 | DVHDS ---
DATE OF DISCHARGE: 06/24/2024 HISTORY OF PRESENT ILLNESS: The patient is a 73-year-old lady who was admitted with history of palpitations and inability to eat. The patient was found to be having tachycardia with atrial fibrillation with a rapid rate. The patient has history of congestive heart failure, GERD, history of mechanical aortic valve and previous ablation. HOSPITAL COURSE: The patient was seen in Cardiology consult by Dr. Gustafson. The patient was initially placed on amiodarone. The patient subsequently converted to sinus rhythm. An attempt was made at cardioversion by Dr. Gustafson. The cardioversion, however, was not successful. The patient at this time will be discharged to resume her home medications except amiodarone. She will be placed on flecainide 50 mg p.o. b.i.d. She will follow up with Dr. Gustafson in 1 week. The patient also had an elevated creatinine level of 1.6 that improved to 1.4 at the time of discharge. Her TSH was uncontrolled at 18.4 that improved to 8 at the time of discharge. FINAL DIAGNOSES: Therefore: * Atrial fibrillation with rapid ventricular rate status post ablation. * History of aortic valve replacement, on Coumadin. * Uncontrolled hypothyroidism. * Hyperlipidemia. * GERD. * ____. * Acute renal failure, questionable vasomotor nephropathy. Time spent in discharge planning and review of plan with the patient and consulting with family was 41 minutes. MD LIZANDRO Byers/MARLON/NADER TID: [id number] RECEIPT: [id number]
[2024-06-25] MEDS ORDERED: PANTOPRAZOLE 40 MG TAB PO SCH (06:00)
--- NOTE | 2024-06-25 08:59 | ECG ---
[facility] Test Date: 2024-06-23 Test Time: 10:21:22 Pat Name: MOSES ROGERS Department: Respiratoy Room: 0215T A Gender: F Canvas Cutter: : 1950 Requested By: TIANA GRIFFIN Order Number: [id number] Reading MD: Measurements Intervals [place] Rate: 68 P: 56 MN: 189 QRS: -11 QRSD: 124 T: 223 QT: 575 QTc: 612 Interpretive Statements Sinus rhythm LVH w/ repol abnormalities, possible ischemia Prolonged QT interval Please click the below link to view image of tracing.
== END 2024-06-24 18:10 | disposition home or self-care (01) | DRG 308 ==
LOC: EDBD 19:14 → ER 19:14 → OVERFLOW 23:20 → TELE-CENTR 06-19 15:56
PROVIDERS: ADMIT Internal Medicine; ATTEND Internal Medicine
PROC: 05HA33Z Insertion of Infusion Device into Left Brachial Vein, Percutaneous Approach (ICD-10-PCS; principal; 2024-06-23)
PROC: B54NZZA Ultrasonography of Left Upper Extremity Veins, Guidance (ICD-10-PCS; 2024-06-23)
DX: I48.0 Paroxysmal atrial fibrillation (principal); I50.23 Acute on chronic systolic (congestive) heart failure; N17.0 Acute kidney failure with tubular necrosis; D68.59 Other primary thrombophilia; R64 Cachexia; I11.0 Hypertensive heart disease with heart failure; K21.9 Gastro-esophageal reflux disease without esophagitis; E03.8 Other specified hypothyroidism; E78.5 Hyperlipidemia, unspecified; I34.0 Nonrheumatic mitral (valve) insufficiency; E87.6 Hypokalemia; E83.42 Hypomagnesemia; Z95.2 Presence of prosthetic heart valve; Z79.01 Long term (current) use of anticoagulants; Z82.3 Family history of stroke; Z82.49 Family history of ischemic heart disease and other diseases of the circulatory system; Z82.5 Family history of asthma and other chronic lower respiratory diseases; Z90.49 Acquired absence of other specified parts of digestive tract; Z90.710 Acquired absence of both cervix and uterus; Z91.048 Other nonmedicinal substance allergy status; Z79.899 Other long term (current) drug therapy; Z68.20 Body mass index [BMI] 20.0-20.9, adult
CPT/HCPCS: 36415; 71045; 80048; 80053; 80061; 81001; 82306; 82607; 82746; 83036; 83735; 83880; 84132; 84439; 84443; 84481; 84484; 85025; 85610; 85652; 85730; 86141; 86850; 86900; 86901; 93005; 97163; 99152; 99291; G0378; J2003; J2250; J2405; J2470; J3470

== ENCOUNTER 2024-09-26 09:46 | Outpatient (CLI) | payer MEDICARE, OTHER ==
[~2024-09-26 09:46] MED LIST changes: +FLE50T PO
== END 2024-09-26 17:00 | disposition home or self-care (01) ==
LOC: Rad HDHVI 09:46
PROVIDERS: ATTEND Internal Medicine Cardiovascular Disease
DX: I35.1 Nonrheumatic aortic (valve) insufficiency (principal); I11.9 Hypertensive heart disease without heart failure; I48.91 Unspecified atrial fibrillation
CPT/HCPCS: 93306